=== PATIENT | female | born 1965 | race Caucasian/White ===

== ENCOUNTER 2022-05-20 09:05 | Outpatient (CLI) | payer OTHER, SELFPAY ==
--- OUTSIDE RECORDS SUMMARY | 2022-05-20 09:34 | XMS_ITS ---
:1965 Author Care Team Providers Name Role Phone VALENTÍN HINKLE Primary Care Provider [phone] DR. DEVON COSTA Referring Provider [phone] Allergies Code Code System Name Reaction Severity Status Onset Sulfa (Sulfonamide Antibiotics) ? ? Active ? Medications Name Status Start Date Stop Date ? ? amoxicillin 875 mg-potassium clavulanate 125 mg tablet Completed ? 05/11/2017 azithromycin 250 mg tablet Completed ? 05/11 citalopram 20 mg tablet Active ? Not avai lable cyclobenzaprine 10 mg tablet Active ? Not available One tablet at bedtime. cyclobenzaprine 5 mg tablet Completed ? 02/2017 doxycycline hyclate 100 mg capsule Active ? Not available estradiol 1 mg tablet Active ? Not availa ble fluconazole 150 mg tablet Completed ? 2016 fluticasone propionate 50 mcg/actuation nasal Completed ? 05/11/2017 spray,suspension metronidazole 0.75 % topical cream Completed ? 05/11/2017 metronidazole 0.75 % topical gel Active ? Not available nitrofurantoin monohydrate/macrocrystals 100 mg capsule Complete d ? 05/11/2017 phenazopyridine 200 mg tablet Completed ? prednisone 10 mg tablet Active ? Not avai lable Problems Name Status Onset Date Source ? 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 Myofascial Pain Active 05/11/2017 ? Arthralgia of Temporomandibular Joint Active 05/11/2017 ? Obstructive Sleep Apnea of Adult Active 06/08/2017 ? Osteoarthritis Active 06/08/2017 ? Procedures Date Name Performed by ? ? Hysterectomy Information not avai lablondon Notes: 200905/11/2017 XR, Orthopantogram [facility] [address] [place] [address] (Work Place) Results Lab Results Date Name Specimen Result Interpretation Description Value Range Status Address ? ? XR, Orthopantogram ? No observation ? ? ? [place]: [address], [place] ? Oral Appliance ? No observation ? ? ? [facility]: [address], [place] Past Encounters None recorded. Social History Tobacco Smoking Status Never Smoker Vaccine List Vaccine Type influenza, injectable, quadrivalent 04/03/2017 Plan of Care Reminders Provider Appointments None recorded. ? ? Lab None recorded. ? ? Referral None recorded. ? ? Procedures None recorded. ? ? Surgeries None recorded. ? ? Imaging None recorded. ? ? Vitals 10/31/2017 01:00PM FOLLOW UP 30 Height Weight BMI Blood Pressure 5 ft 11 in 195 lbs 27.2 kg/m2 126/70 mm[Hg] 06/22/2017 01:00PM FOLLOW UP 30 Height Weight BMI Blood Pressure 5 ft 11 in 195 lbs 27.2 kg/m2 128/75 mm[Hg] 06/08/2017 01:00PM SPLINT INSERT Height Weight BMI Blood Pressure 5 ft 11 in 195 lbs 27.2 kg/m2 104/70 mm[Hg] 05/11/2017 02:00PM NEW PATIENT 58 Height Weight BMI Blood Pressure 5 ft 11 in 195 lbs 27.2 kg/m2 125/77 mm[Hg]
[2022-05-20 14:36] LABS: Chloride* 105 mmol/L (96-114)
[2022-05-20 14:37] LABS: Albumin* 4.1 g/dL (3.3-5.0); Sodium* 141 mmol/L (135-149)
[2022-05-20 14:38] LABS: Potassium* 4.4 mmol/L (3.6-5.1)
[2022-05-20 14:39] LABS: Cholesterol* 278 mg/dL (90-199)
[2022-05-20 14:40] LABS: Alanine Aminotransferase* 21 U/L (4-35); Alkaline Phosphatase* 56 U/L (40-150); Aspartate Amino Transferase* 26 U/L (12-35); Bilirubin Total* 0.7 mg/dL (0.1-1.5); Blood Urea Nitrogen* 23 mg/dL (7-30); Calcium* 9.4 mg/dL (8.4-10.6); Carbon Dioxide* 33 mmol/L (20-32); Estimated Glomerular Filt Rate 65 ml/min; Glucose* 87 mg/dL (60-115); Total Protein* 6.5 g/dL (6.0-8.3); Triglycerides* 150 mg/dL (40-149)
[2022-05-20 14:41] LABS: HDL Cholesterol* 53 mg/dL (>=50); LDL Cholesterol Calculated 195 mg/dL (<100)
[2022-05-20 14:43] LABS: C Reactive Protein* < 0.5 mg/dL (0.5-1.0)
[2022-05-20 15:08] LABS: Vitamin D 25 Hydroxy* 35 ng/mL (30-80)
[2022-05-23 09:50] LABS: Progesterone, HPLC-MS/MS <0.10 ng/mL
[2022-05-25 17:17] LABS: Sex Hormone Binding Globulin 62 nmol/L (17-125); Testosterone Bioavailable 5.1 ng/dL (1.5-9.4); Testosterone, Free LC-MS/MS 1.9 pg/mL (0.6-3.8); Testosterone, LC-MS/MS 17 ng/dL (9-55)
== END 2022-05-20 09:06 | disposition home or self-care (01) ==
PROVIDERS: PCP Physician Assistant Medical; Visit Provider Physician Assistant Medical
DX: Z00.00 Encounter for general adult medical examination without abnormal findings (principal); N95.1 Menopausal and female climacteric states; E78.5 Hyperlipidemia, unspecified; Z13.29 Encounter for screening for other suspected endocrine disorder; Z13.9 Encounter for screening, unspecified
CPT/HCPCS: 80053; 80061; 82306; 82670; 84144; 84270; 84402; 84403; 84443; 86140

== ENCOUNTER 2022-06-03 13:43 | Outpatient (CLI) | payer OTHER, SELFPAY ==
--- NOTE | 2022-06-03 14:00 | CRLHL7_ITS ---
For Patients: As a result of the Century Cures Act, medical imaging exams and procedure reports are released immediately into your electronic medical record. You may view this report before your referring provider. If you have questions, please contact your health care provider. DXA BONE MINERAL DENSITY STUDY Reason for exam: Osteopenia. Current height (in): 70. Weight (lb): 200. Menopause age: 50. Ethnicity: White. 1. Have you had a previous hip or vertebral fracture? No. 2. Have you had any fractures during your adult life which did not result from significant trauma (e.g., auto accident)? Yes. 3. Did either of your parents have a hip fracture? Yes. 4. Do you smoke? No. 5. Have you ever taken Glucocorticoids? No. 6. Do you have rheumatoid arthritis? No. 7. Do you have secondary osteoporosis? No. 8. Do you drink 3 or more alcoholic drinks per day? No. 9. Are you being treated for osteoporosis? No. 10. Have you ever taken any of the following medications: Actonel, Evista, Fosamax, Miacalcin, Reclast, Boniva, Forteo, HRT (i.e., estrogen/hormone therapy), Protelos, Prolia, Vitamin D, Calcium, other ??? please specify. ANSWER: Yes, vitamin D and calcium. 11. Do you have any of the following medical conditions: Anorexia or bulimia, asthma or emphysema, end stage renal disease, hyperparathyroidism, any seizure disorders, cancer, inflammatory bowel diseases, hysterectomy, other ??? please specify. ANSWER: Yes, hysterectomy. 12. What was your maximum height (inches)? 70. 13. Do you perform weight bearing exercise regularly? No. 14. Do you regularly consume dairy products? Yes. 15. Do you drink caffeinated beverages? Yes. If female: 16. At what age did your period start? 11. 17. Are you premenopausal? No. 18. How many full-term pregnancies have you had? 3. 19. Have you ever missed your period for more than 6 months in a row (not including or menopause)? No. TECHNIQUE: Bone mineral density study was performed using the [employer]. FINDINGS: The results of the study expressed as bone mineral density (BMD) are as follows: Lumbar spine L1 to L4: BMD: 0.838 g/cm2. T-score: -1.9. Z-score: -0.6 Neck Left: BMD: 0.643 g/cm2. T-score: -1.9. Z-score: -0.6 Right: BMD: 0.643 g/cm2. T-score: -1.9. Z-score: -0.6 Total Left: BMD: 0.814 g/cm2. T-score: -1.0. Z-score: -0.2 Right: BMD: 0.789 g/cm2. T-score: -1.3. Z-score: -0.4 IMPRESSION: Osteopenia. *Comparison exams done prior to 12/2019 were performed on different unit, [employer]. COMPARISON: Compared with scan of 04/15/2016 the bone mineral density has decreased by 13.8 percent at the spine and decreased by 1.0 percent at the hip. FRAX 10-year Fracture Risk Major Osteoporotic Fracture: 27% Hip Fracture: 1.7% Reported Risk Factors: [place] () Neck BMD=0.643, BMI= 28.7, previous fracture, parental fracture Joseph Sanches M.D. Diagnostic Radiologist [email or web address] jennings/Dictated by: Joseph Sanches MD @ 06/04/2022 12:22:00 PM (Electronically Signed)
--- OUTSIDE RECORDS SUMMARY | 2022-06-03 14:12 | XMS_ITS ---
:1965 Author Care Team Providers Name Role Phone VALENTÍN HINKLE Primary Care Provider [phone] DR. DEVON COSTA Referring Provider [phone] Allergies Code Code System Name Reaction Severity [...] by ? ? Hysterectomy Information not avai quentin Notes: 200905/11/2017 XR, Orthopantogram [place] [facility] [address] [place] [address] (Work Place) Results Lab Results Date Name Specimen Result Interpretation Description Value Range Status Address ? ? XR, Orthopantogram ? No observation ? ? ? [place]: [address], [place] ? Oral Appliance ? No observation ? ? ? [place]: [address] [...]
== END 2022-06-03 13:44 | disposition home or self-care (01) ==
LOC: RAD 13:44
PROVIDERS: PCP Physician Assistant Medical; Visit Provider Physician Assistant Medical
DX: M85.80 Other specified disorders of bone density and structure, unspecified site (principal); M85.89 Other specified disorders of bone density and structure, multiple sites
CPT/HCPCS: 77080

== ENCOUNTER 2022-08-18 10:01 | Outpatient (CLI) | payer OTHER, SELFPAY ==
--- NOTE | 2022-08-18 10:15 | CRLHL7_ITS ---
For Patients: As a result of the Cures Act, medical imaging exams and procedure reports are released immediately into your electronic medical record. You may view this report before your referring provider. If you have questions, please contact your health care provider. BILATERAL SCREENING MAMMOGRAM WITH COMPUTER-AIDED DETECTION AND TOMOSYNTHESIS TECHNIQUE: CC and MLO views were obtained. These mammographic images have been obtained using full-field digital technique. These mammographic images were interpreted with the benefit of computer-aided detection. Breast tomosynthesis was used in this interpretation. COMPARISON FILM: 06/10/21, , 05/03/19. FINDINGS: There are scattered areas of fibroglandular density. IMPRESSION: There is no radiographic evidence for malignancy. ASSESSMENT: BI-RADS Category 1: Negative RECOMMENDATION: Routine screening mammogram in 1 year. A lay language report of this examination will be provided to the patient. JOSEPH KARIMI M.D. Diagnostic Radiologist [email or web address] Transcribed: 08/18/2022, 2:[address]/Dictated by: Joseph Karimi MD @ 08/18/2022 10:40:00 AM (Electronically Signed)
== END 2022-08-18 10:02 | disposition home or self-care (01) ==
LOC: MAMMO 10:01
PROVIDERS: PCP Physician Assistant Medical; Visit Provider Physician Assistant Medical
DX: Z12.31 Encounter for screening mammogram for malignant neoplasm of breast (principal)
CPT/HCPCS: 77063; 77067

== ENCOUNTER 2023-01-26 08:30 | Outpatient (CLI) | payer OTHER, SELFPAY | END 2023-01-26 08:31 | disposition home or self-care (01) | LOC: NFLDREF 01-27 10:52 | PROVIDERS: PCP Physician Assistant Medical; Referring Provider Physician Assistant Medical; Visit Provider Physician Assistant Medical | DX: E78.5 Hyperlipidemia, unspecified (principal) | CPT/HCPCS: 80061; 80076 ==

== ENCOUNTER 2023-03-14 10:51 | Emergency (ER) | payer OTHER, SELFPAY ==
[2023-03-14 10:55] VITALS: BP 148/78; PULSE 70; RESP 18; TEMP 35.9; O2SAT 99
--- NOTE | 2023-03-14 10:57 | CT_ITS ---
Patient: COLEMAN GERBER Facility:?[facility] Patient ID:?[id number] Site Patient ID:?[id number]. Site :?[id number] Study:?CT-Abdomen/Pelvis W/O-03/14/2023 11:36:49 AM Ordering Physician:Pedro Ponce Final Report: INDICATION: Left lower quadrant pain. COMPARISON: None. TECHNIQUE: CT of the abdomen and pelvis without IV or oral contrast. Axial, coronal, and sagittal reconstructions are included. FINDINGS: There is a 5 mm urinary tract calculus in the proximal left ureter. There is upstream hydroureteronephrosis, mild to moderate. There are no other left-sided urinary tract calculi. Very mild left perinephric stranding. There is a nonobstructing 8 mm globular urinary tract calculus in the right lower pole. No right ureteral calculus. No right-sided urinary tract dilatation. Normal noncontrast CT appearance of the right renal parenchyma. The urinary bladder is almost completely empty. The lung bases are clear. Cholelithiasis without cholecystitis. The liver is normal. The spleen is normal. The adrenal glands are normal. The pancreas is normal. No adenopathy or ascites. Atherosclerotic calcifications. Non aneurysmal abdominal aorta. Normal course and caliber of the bowel. No inflammatory straining. Few diverticula. The appendix is normal. Disc and facet degenerative change. No worrisome osseous findings. IMPRESSION: 1. There is a 5 mm at least partially obstructing left ureteral calculus. 2. Nonobstructing right lower pole renal calculus. 3. Cholelithiasis without cholecystitis. Please note that all CT scans at this facility use dose modulation, iterative reconstruction, and/or weight-based dosing when appropriate to reduce radiation dose to as low as reasonably achievable. Dictated by Wendy Hopkins MD @ 03/14/2023 12:47:05 PM Signed by:?Wendy Hopkins MD @03/14/2023 12:47:05 PM (Electronic Signature)
--- NOTE | 2023-03-14 11:00 | ED.GENADULT ---
HPI - General Adult General Date Seen: 03/14/23 Chief complaint: Abdominal Pain Stated complaint: Flank pain Time Seen by Provider: 03/14/23 10:56 Source: patient, RN notes reviewed and other Mode of arrival: EMS Limitations: no limitations History of Present Illness HPI narrative: Patient is a 57-year-old generally healthy woman who says she woke up in the middle night with some severe left lower quadrant pain that seems to radiate from the back. She does not have flank pain. No history of similar pain. Pain went away after about 10 minutes overnight but then returned when she was at work earlier today. She works at our [employer], she was given Toradol and Vistaril there and then came here by EMS. EMS also gave her some fentanyl 1 pain became more severe and route. She has had some nausea but no vomiting. Denies urinary symptoms. No vaginal bleeding, no diarrhea black or bloody stools. She is status post hysterectomy, still has her ovaries. Has some orthopedic medical history but denies other significant medical history. Postmenopausal. Related Data Home Medications Medication Instructions Recorded Confirmed cyclobenzaprine 10 mg tablet 10 mg PO .Bedtime as needed PRN 05/20/22 06/28/22 ergocalciferol (vitamin D2) 10 mcg 400 unit PO DAILY 05/20/22 06/28/22 (400 unit) tablet valacyclovir 1 gram tablet mg PO BID 05/20/22 06/28/22 Previous Rx's Medication Instructions Recorded citalopram 20 mg tablet 20 mg PO QDAY #90 tabs 06/30/22 rosuvastatin 5 mg tablet 5 mg PO QDAY #90 tabs 11/24/22 ondansetron 4 mg disintegrating 4 mg PO Q8H PRN nausea and 03/14/23 tablet vomiting #7 tabs oxycodone 5 mg tablet 5 mg PO Q6H PRN pain #10 tabs 03/14/23 tamsulosin 0.4 mg capsule 0.4 mg PO DAILY #14 caps 03/14/23 Allergies Allergy/AdvReac Type Severity Reaction Status Date / Time Sulfa (Sulfonamide Allergy Severe Hives Verified 06/28/22 12:04 Antibiotics) oxymetazoline Allergy Unknown Verified 06/28/22 12:04 Review of Systems Status of ROS: Reports: 10 or more systems reviewed and unremarkable except as noted in History and below PFSH [facility] Medical History Squamous cell carcinoma (04/10/10) Migraine headache (08/16/08) ?G43.909 - Migraine, unspecified, not intractable, without status migrainosus (ICD-10) History of colonic polyps ?Z86.010 - Personal history of colonic polyps (ICD-10) Disorder of paranasal sinus ?J34.9 - Unspecified disorder of nose and nasal sinuses (ICD-10) Bursitis of both hips ?M70.71 - Other bursitis of hip, right hip (ICD-10) ?M70.72 - Other bursitis of hip, left hip (ICD-10) Anemia ?D64.9 - Anemia, unspecified (ICD-10) Surgical History History of left cataract surgery ?Z98.42 - Cataract extraction status, left eye (ICD-10) History of nasal septoplasty ?Z98.890 - Other specified postprocedural states (ICD-10) History of hysterectomy (04/10/10) ?Z90.710 - Acquired absence of both cervix and uterus (ICD-10) Family History Sister Coronary artery disease Father Lung cancer Alcohol dependence Liver disease Mother COPD (chronic obstructive pulmonary disease) Osteoporosis Sister Diabetes Sister Osteoporosis Other Family history of thyroid problem Social History Narrative: . Three adult children. 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 Never smoker. Rare alcohol use. Denies recreational drug use. Smoking Status: Never smoker Non-prescribed substance use: denies use Little interest or pleasure in doing things: not at all Feeling down, depressed, or hopeless: not at all Exam Narrative: Exam Narrative: Vital signs as noted above. In general, an alert, well-appearing patient. Head: Normocephalic, atraumatic. Eyes: Pupils are equal reactive. Extraocular movements are full. Conjunctivae are normal. ENT: Mucous membranes are moist. Throat is normal. Neck: Supple without lymphadenopathy. Heart: Regular rate and rhythm. No murmur or rub. Lungs: Clear bilaterally. No increased work of breathing, crackles or wheezes. Abdomen: Soft nondistended. Mild left lower quadrant tenderness without rebound guarding or rigidity. Extremities: Well perfused. No edema. No calf tenderness. Pulses intact. Neurologic: Patient is alert and oriented to person and place. Speech is fluent. Face is symmetric. Moves all extremities equally. Affect: Normal. Skin: Warm and dry. Well perfused. Const: Vital Signs, click to edit/add: Vital Signs - 24 hr 03/14/23 10:55 03/14/23 12:22 Temperature 96.6 F L 97.6 F Pulse Rate [Right Pulse Oximeter] 70 74 Respiratory Rate 18 16 Blood Pressure [Ri ght Upper Arm] 148/78 H 140/86 H Pulse Oximetry 99 96 Oxygen Delivery Me thod Room Air Room Air Documenting provider has reviewed patient's vital signs: yes Course Course ED Course: IV is in place, currently does not need anything for pain. Have ordered normal saline, labs, CT without contrast as well as UA. Differential diagnosis includes kidney stone, ovarian pathology, diverticulitis, among others. Patient had an additional 4 mg of morphine prior to CT and is feeling more comfortable. CT by my review showed as 6 mm stone at the proximal left ureter with associated hydronephrosis. There is also a stone in the right kidney. Labs are notable for hematuria with 25-50 red cells but notably absent white cells. White blood cell count was normal at 7.7. Creatinine was normal at 1. CRP was less than 0.5. Final radiology readIMPRESSION: 1. There is a 5 mm at least partially obstructing left ureteral calculus. 2. Nonobstructing right lower pole renal calculus. 3. Cholelithiasis without cholecystitis. Discharge home, return for uncontrolled pain, fever, chills, vomiting or other worsening. Urology follow-up recommended as I suspect this will require instrumentation to pass, prescribed oxycodone, Zofran, Flomax. Push fluids, strain urine. Vital Signs Vital signs: Initial Vital Signs Temperature 96.6 F L 03/14/23 10:55 Temperature Source Temporal Artery Scan 03/14/23 10:55 Pulse Rate 70 03/14/23 10:55 Respiratory Rate 18 03/14/23 10:55 Blood Pressure 148/78 H 03/14/23 10:55 Blood Pressure Mean 101 03/14/23 10:55 Blood Pressure Position Sitting 03/14/23 10:55 Pulse Oximetry 99 03/14/23 10:55 Oxygen Delivery Method Room Air 03/14/23 10:55 Vital Signs Temperature 96.6 F L 03/14/23 10:55 Pulse Rate 70 03/14/23 10:55 Respiratory Rate 18 03/14/23 10:55 Blood Pressure 148/78 H 03/14/23 10:55 Pulse Oximetry 99 03/14/23 10:55 Oxygen Delivery Method Room Air 03/14/23 10:55 Temperature 97.6 F 03/14/23 12:22 Pulse Rate 74 03/14/23 12:22 Respiratory Rate 16 03/14/23 12:22 Blood Pressure 140/86 H 03/14/23 12:22 Pulse Oximetry 96 03/14/23 12:22 Oxygen Delivery Method Room Air 03/14/23 12:22 Medical Decision Making Lab Data Labs: Lab Results 03/14/23 03/14/23 Range/Units 11:05 11:21 WBC 7.71 (4.50-11.00) K/uL RBC 4.39 (4.00-5.20) m/uL Hgb 13.3 (12.0-16.0) gm/dL Hct 39.9 (33.0-51.0) % MCV 91 (80-100) fL MCH 30 (26-34) pg MCHC 33 (32-36) gm/dL RDW Coeff of Kylah 13.0 (11.5-15.5) % Plt Count 206 (140-440) K/uL Neut % (Auto) 65.6 (42.0-72.0) % Lymph % (Auto) 24.3 (20-44) % [place] % (Auto) 6.2 (0.0-11.0) % Eos % (Auto) 3.4 (0.0-7.0) % Baso % (Auto) 0.4 (0.0-3.0) % Neut # (Auto) 5.06 (1.7-7.0) K/uL Lymph # (Auto) 1.87 (0.90-2.90) K/uL [place] # (Auto) 0.50 (0.00-0.90) K/UL Eos # (Auto) 0.26 (0.00-0.50) K/uL Baso # (Auto) 0.03 (0.00-0.30) K/uL Abs Immat Gran (auto) 0.01 (0.00-0.30) K/uL Imm/Tot Granulo (auto) 0.1 % Sodium 140 (135-149) mmol/L Potassium 3.8 (3.6-5.1) mmol/L Chloride 105 (96-114) mmol/L Carbon Dioxide 29 (20-32) mmol/L Anion Gap 6 L (7-15) mEq/L BUN 16 (7-30) mg/dL Creatinine 1.0 (0.5-1.5) mg/dL Estimated GFR 65 ml/min Glucose 115 (60-115) mg/dL Calcium 9.6 (8.4-10.6) mg/dL C-Reactive Protein < 0.5 L (0.5-1.0) mg/dL Urine Color Brown A (Yellow) Urine Appearance Slightly Cloudy A (Clear) Urine pH 6.5 (5.0-8.5) Ur Specific [place] >= 1.030 (1.000-1.030) Urine Protein 3+ A (Negative) Urine Glucose (UA) Negative (Negative) Urine Ketones Trace A (Negative) Urine Blood 3+ A (Negative) Urine Nitrite Negative (Negative) Urine Bilirubin 1+ A (Negative) Urine Urobilinogen 0.2 (0.2-1.0) Ur Leukocyte Esterase Negative (Negative) Urine RBC 50-100 A (0-2) Urine WBC 0-2 (0-5) Ur Squamous Epith Cells Moderate A (None-Few) Urine Bacteria None (None) Discharge Plan Discharge Clinical Impression: Kidney stone on left side Patient Disposition: Home, Self-Care Instructions: Kidney Stones (ED) Additional Instructions: Medications as prescribed. Urology follow-up as soon as able, call [phone] to schedule with [facility]. Push fluids, strain urine. If at any time you have severe uncontrolled pain, new symptoms such as fever chills, vomiting, or other inability to manage symptoms at home, return to the emergency department. Prescriptions: New tamsulosin 0.4 mg capsule 0.4 mg PO DAILY Qty: 14 2RF oxycodone 5 mg tablet 5 mg PO Q6H PRN (Reason: pain) Qty: 10 0RF ondansetron 4 mg tablet,disintegrating 4 mg PO Q8H PRN (Reason: nausea and vomiting) Qty: 7 0RF No Action valacyclovir 1 gram tablet PO BID Rx Instructions: Take 2 tablets twice per day x 1 day for intial onset of cold sores( total of a 4 gram tx in 24 hours) ergocalciferol (vitamin D2) 10 mcg (400 unit) tablet 400 unit PO DAILY cyclobenzaprine 10 mg tablet 10 mg PO .Bedtime as needed PRN citalopram 20 mg tablet 20 mg PO QDAY Qty: 90 3RF rosuvastatin 5 mg tablet 5 mg PO QDAY Qty: 90 3RF Rx Instructions: Once daily for cholesterol Follow Up/Referrals: Linda Cowan PA-C [Primary Care Provider] - Stand Alone Forms: [facility] Info Instructions
[2023-03-14 11:12] LABS: Appearance Urine Slightly Cloudy (Clear); Bilirubin Urine 1+ (Negative); Blood Urine 3+ (Negative); Color Urine Brown (Yellow); Glucose Urine Negative (Negative); Ketones Urine Trace (Negative); Leukocyte Esterase Urine Negative (Negative); Nitrite Urine Negative (Negative); Protein Urine 3+ (Negative); Specific Gravity Urine >= 1.030 (1.000-1.030); Urobilinogen Urine 0.2 (0.2-1.0); pH Urine 6.5 (5.0-8.5)
[2023-03-14] MEDS: 0.9 % SODIUM CHLORIDE 1000 ml 1,000 ML IV (11:16)
[2023-03-14] MEDS: MORPHINE 4 MG/ML INJ IVP (11:16)
[2023-03-14 11:23] LABS: RBC Urine 50-100 (0-2); Squamous Epithelial Cell Urine Moderate (None-Few); WBC Urine 0-2 (0-5)
[2023-03-14 11:35] LABS: Basophils Absolute Auto 0.03 K/uL (0.00-0.30); Basophils Percent Auto 0.4 % (0.0-3.0); Eosinophils Absolute Auto 0.26 K/uL (0.00-0.50); Eosinophils Percent Auto 3.4 % (0.0-7.0); Hematocrit 39.9 % (33.0-51.0); Hemoglobin* 13.3 gm/dL (12.0-16.0); Immature Granulocytes Abs Auto 0.01 K/uL (0.00-0.30); Immature Granulocytes Pct Auto 0.1 %; Lymphocytes Absolute Auto 1.87 K/uL (0.90-2.90); Lymphocytes Percent Auto 24.3 % (20-44); Mean Corpuscular HGB Conc 33 gm/dL (32-36); Mean Corpuscular Hemoglobin 30 pg (26-34); Mean Corpuscular Volume 91 fL (80-100); Monocytes Percent Auto 6.2 % (0.0-11.0); Neutrophils Absolute Auto 5.06 K/uL (1.7-7.0); Neutrophils Percent Auto 65.6 % (42.0-72.0); Platelet Count* 206 K/uL (140-440); Red Blood Count 4.39 m/uL (4.00-5.20); White Blood Count* 7.71 K/uL (4.50-11.00)
[2023-03-14 11:40] LABS: Slide Review Reflex No
[2023-03-14 11:42] LABS: Chloride* 105 mmol/L (96-114); Potassium* 3.8 mmol/L (3.6-5.1); Sodium* 140 mmol/L (135-149)
[2023-03-14 11:45] LABS: Anion Gap 6 mEq/L (7-15); Blood Urea Nitrogen* 16 mg/dL (7-30); Carbon Dioxide* 29 mmol/L (20-32); Estimated Glomerular Filt Rate 65 ml/min
[2023-03-14 11:46] LABS: Calcium* 9.6 mg/dL (8.4-10.6); Glucose* 115 mg/dL (60-115)
[2023-03-14 12:05] LABS: C Reactive Protein* < 0.5 mg/dL (0.5-1.0)
[2023-03-14] MEDS: OXYCODONE 5 MG TABLET PO (12:06)
[2023-03-14 12:22] VITALS: BP 140/86; PULSE 74; RESP 16; TEMP 36.4; O2SAT 96
== END 2023-03-14 13:48 | disposition home or self-care (01) ==
PROVIDERS: Emergency Provider Emergency Medicine; PCP Physician Assistant Medical
DX: R10.32 Left lower quadrant pain (principal); Z87.442 Personal history of urinary calculi
CPT/HCPCS: 36415; 74176; 80048; 81001; 85025; 86140; 96374; 99284; A9270; J2270; J7030

== ENCOUNTER 2023-03-23 00:08 | Emergency (ER) | payer OTHER, SELFPAY ==
[2023-03-23 00:33] VITALS: BP 149/81; PULSE 88; RESP 18; TEMP 36.7; O2SAT 99; BMI 27.2
[2023-03-23 00:36] LABS: Appearance Urine Cloudy (Clear); Bilirubin Urine 1+ (Negative); Blood Urine 3+ (Negative); Color Urine Red (Yellow); Glucose Urine Negative (Negative); Ketones Urine Negative (Negative); Leukocyte Esterase Urine 1+ (Negative); Nitrite Urine Negative (Negative); Protein Urine 3+ (Negative); Specific Gravity Urine 1.025 (1.000-1.030); Urobilinogen Urine 0.2 (0.2-1.0); pH Urine 6.5 (5.0-8.5)
--- NOTE | 2023-03-23 00:49 | ED_ITS ---
HPI - General Adult General Time Seen by Provider: 00:49 Date Seen: 03/23/23 Chief complaint: Flank Pain Stated complaint: Severe Flank Pain-Left side Time Seen by Provider: 03/23/23 00:49 Source: patient, RN notes reviewed and old records reviewed Mode of arrival: ambulatory Limitations: no limitations History of Present Illness HPI narrative: Dot is a very pleasant 57-year-old female with history of hyperlipidemia and recent lithotripsy on TuesdayMarch 18 along with stent placement on the left who comes to the emergency room with increasing left-sided pain. Patient notes that she has had blood in her urine since the procedure and she has had some discomfort but usually controlled with oxycodone and Tylenol. She noted discomfort coming on earlier this evening at approximately 2200 hours and took her oxycodone and Tylenol. Instead of improving she actually has worsening pain. Pain is in her left flank and does radiate into her left lower abdominal quadrant. She has no pain with urination. She notes mild nausea but has not had any vomiting. She denies a fever. Movement does not improve her discomfort. Related Data Home Medications Medication Instructions Recorded Confirmed cyclobenzaprine 10 mg tablet 10 mg PO .Bedtime as needed PRN 05/20/22 03/23/23 ergocalciferol (vitamin D2) 10 mcg 400 unit PO DAILY 05/20/22 03/23/23 (400 unit) tablet ciprofloxacin HCl 500 mg tablet 500 mg PO BID 03/23/23 03/23/23 Previous Rx's Medication Instructions Recorded citalopram 20 mg tablet 20 mg PO QDAY #90 tabs 06/30/22 rosuvastatin 5 mg tablet 5 mg PO QDAY #90 tabs 11/24/22 ondansetron 4 mg disintegrating 4 mg PO Q8H PRN nausea and 03/14/23 tablet vomiting #7 tabs tamsulosin 0.4 mg capsule 0.4 mg PO DAILY #14 caps 03/14/23 oxycodone 5 mg tablet 5 mg PO Q6H PRN pain #15 tabs 03/16/23 Allergies Allergy/AdvReac Type Severity Reaction Status Date / Time Sulfa (Sulfonamide Allergy Severe Hives Verified 03/23/23 00:37 Antibiotics) oxymetazoline Allergy Mild Nose Verified 03/23/23 00:37 Closes Up Review of Systems Status of ROS: Reports: 6 or more systems reviewed and unremarkable except as noted in History and below Const: Denies: fever or chills ENMT: Denies: difficulty swallowing Cardio: Denies: chest pain, swelling of feet/ankles or shortness of breath with exertion Resp: Denies: shortness of breath GI: Reports: nausea; Denies: abdominal pain, vomiting or difficulty swallowing : Reports: blood in urine; Denies: painful urination Musculo: Reports: back pain Psych: Reports: anxiety (History of) [facility] Medical History Squamous cell carcinoma (04/10/10) Migraine headache (08/16/08) ?G43.909 - Migraine, unspecified, not intractable, without status migrainosus (ICD-10) History of colonic polyps ?Z86.010 - Personal history of colonic polyps (ICD-10) Disorder of paranasal sinus ?J34.9 - Unspecified disorder of nose and nasal sinuses (ICD-10) Bursitis of both hips ?M70.71 - Other bursitis of hip, right hip (ICD-10) ?M70.72 - Other bursitis of hip, left hip (ICD-10) Anemia ?D64.9 - Anemia, unspecified (ICD-10) Surgical History History of bunionectomy ?Z98.890 - Other specified postprocedural states (ICD-10) History of left cataract surgery ?Z98.42 - Cataract extraction status, left eye (ICD-10) History of nasal septoplasty ?Z98.890 - Other specified postprocedural states (ICD-10) History of hysterectomy (04/10/10) ?Z90.710 - Acquired absence of both cervix and uterus (ICD-10) Family History Sister Coronary artery disease Father Lung cancer Alcohol dependence Liver disease Mother COPD (chronic obstructive pulmonary disease) Osteoporosis Sister Diabetes Sister Osteoporosis Other Family history of thyroid problem Social History Narrative: . Three adult children. 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 Never smoker. Rare alcohol use. Denies recreational drug use. Smoking Status: Never smoker Second hand tobacco smoke exposure: No How often do you have a drink containing alcohol: never How often do you have six or more drinks on one occasion: Never AUDIT-C Alcohol total score: 0 Non-prescribed substance use: denies use Little interest or pleasure in doing things: not at all Feeling down, depressed, or hopeless: not at all Exam Narrative: Exam Narrative: Patient is alert and oriented. Appears fatigued but nontoxic in appearance. Mentating normally speech is appropriate. Heart with regular rate and rhythm. Lungs are clear bilaterally. Abdomen soft and nontender. No CVA tenderness with percussion. Moving all extremities. Const: Vital Signs, click to edit/add: Vital Signs - 24 hr 03/23/23 00:33 Temperature 98.0 F Pulse Rate [Right Pulse Oximeter] 88 Respiratory Rate 18 Blood Pressure [Ri ght Upper Arm] 149/81 H Pulse Oximetry 99 Oxygen Delivery Me thod Room Air Documenting provider has reviewed patient's vital signs: yes Course Course ED Course: At this time will place IV, give Dilaudid 0.5 mg IV and Zofran 4 mg IV as well as 1 L of normal saline. Hopefully we can get Dot's pain under control. Differential diagnosis does include ureteral blockage from stone fragment, blood clot, stent migration, UTI. We would also need to consider possibility of intra-abdominal process such as a constipation. Will check CBC, comprehensive, CRP, urinalysis. Reevaluation(s) Reevaluation #1: Patient feels that pain is better controlled. Patient is in agreement to proceed with CT. Vital Signs Vital signs: Initial Vital Signs Temperature 98.0 F 03/23/23 00:33 Temperature Source Temporal Artery Scan 03/23/23 00:33 Pulse Rate 88 03/23/23 00:33 Respiratory Rate 18 03/23/23 00:33 Blood Pressure 149/81 H 03/23/23 00:33 Blood Pressure Mean 103 03/23/23 00:33 Blood Pressure Position Sitting 03/23/23 00:33 Pulse Oximetry 99 03/23/23 00:33 Oxygen Delivery Method Room Air 03/23/23 00:33 Vital Signs Temperature 98.0 F 03/23/23 00:33 Pulse Rate 88 03/23/23 00:33 Respiratory Rate 18 03/23/23 00:33 Blood Pressure 149/81 H 03/23/23 00:33 Pulse Oximetry 99 03/23/23 00:33 Oxygen Delivery Method Room Air 03/23/23 00:33 Temperature 98.0 F 03/23/23 00:33 Pulse Rate 88 03/23/23 00:33 Respiratory Rate 18 03/23/23 00:33 Blood Pressure 149/81 H 03/23/23 00:33 Pulse Oximetry 99 03/23/23 00:33 Oxygen Delivery Method Room Air 03/23/23 00:33 Medical Decision Making MDM Narrative Medical decision making narrative: 1. Flank pain-patient feeling much improved after Dilaudid 0.5 mg and Zofran 4 mg. Patient also received 1 L of normal saline. CT is reassuring at this time. No evidence of retained stone. Patient agrees that she feels well enough to go home. Her labs are reassuring. She will be following up with her urologist later today. I have suggested in increase from 5 mg of oxycodone to 7.5 mg q.4 hours as needed. She may go up to a maximum of 10 mg if needed. 2. Status post lithotripsy with stent placement-CT reassuring. 2. Disposition-home at this time. present and is loving and supportive. Recommend return for fever, worsening symptoms and as needed. Medical Records Medical records reviewed: Yes I reviewed the patient's medical records Lab Data Lab results reviewed: Yes I reviewed the patient's lab results Labs: Lab Results 03/23/23 03/23/23 Range/Units 00:26 00:48 WBC 8.55 (4.50-11.00) K/uL RBC 4.27 (4.00-5.20) m/uL Hgb 12.9 (12.0-16.0) gm/dL Hct 38.4 (33.0-51.0) % MCV 90 (80-100) fL MCH 30 (26-34) pg MCHC 34 (32-36) gm/dL RDW Coeff of Kylah 12.7 (11.5-15.5) % Plt Count 247 (140-440) K/uL Neut % (Auto) 51.4 (42.0-72.0) % Lymph % (Auto) 35.3 (20-44) % [place] % (Auto) 7.3 (0.0-11.0) % Eos % (Auto) 5.5 (0.0-7.0) % Baso % (Auto) 0.4 (0.0-3.0) % Neut # (Auto) 4.40 (1.7-7.0) K/uL Lymph # (Auto) 3.02 H (0.90-2.90) K/uL [place] # (Auto) 0.60 (0.00-0.90) K/UL Eos # (Auto) 0.47 (0.00-0.50) K/uL Baso # (Auto) 0.03 (0.00-0.30) K/uL Abs Immat Gran (auto) 0.01 (0.00-0.30) K/uL Imm/Tot Granulo (auto) 0.1 % Sodium 140 (135-149) mmol/L Potassium 3.6 (3.6-5.1) mmol/L Chloride 103 (96-114) mmol/L Carbon Dioxide 29 (20-32) mmol/L Anion Gap 8 (7-15) mEq/L BUN 15 (7-30) mg/dL Creatinine 1.0 (0.5-1.5) mg/dL Estimated Creat Clear 67.70 Estimated GFR 65 ml/min Glucose 106 (60-115) mg/dL Calcium 9.8 (8.4-10.6) mg/dL Urine Color Red A (Yellow) Urine Appearance Cloudy A (Clear) Urine pH 6.5 (5.0-8.5) Ur Specific [place] 1.025 (1.000-1.030) Urine Protein 3+ A (Negative) Urine Glucose (UA) Negative (Negative) Urine Ketones Negative (Negative) Urine Blood 3+ A (Negative) Urine Nitrite Negative (Negative) Urine Bilirubin 1+ A (Negative) Urine Urobilinogen 0.2 (0.2-1.0) Ur Leukocyte Esterase 1+ A (Negative) Urine RBC >100 A (0-2) Urine WBC 2-5 (0-5) Ur Squamous Epith Cells Few (None-Few) Urine Bacteria Few A (None) Imaging Data CT scan - abdomen: Attestation: I have reviewed the pertinent imaging results. Radiologist's impression: Lower chest: Unremarkable. Liver: Unremarkable. Spleen: Unremarkable. Pancreas: Unremarkable. Gallbladder: A tiny calcified gallstone is seen near the colon bladder neck. Kidney: There is a stone in the lower pole of the right kidney that measures 8 mm. The stone in the left ureteropelvic junction seen on prior examination is no longer present. Interval placement of a left double-J ureteral stent is present with the proximal tip formed near the ureteropelvic junction. Adrenal: Unremarkable. Bowel: See above. The appendix is normal in appearance and size. Vascular: Unremarkable. Lymph: Unremarkable. Peritoneum: Unremarkable. No pneumoperitoneum is seen. No significant ascites is noted. Pelvis: The patient is status post hysterectomy. Soft tissue: Unremarkable. Bone: Unremarkable for age. IMPRESSION: 1. The stone in the left ureteropelvic junction seen on prior examination is no longer present. Interval placement of a left double-J ureteral stent is present with the proximal tip formed near the ureteropelvic junction. Discharge Plan Discharge Clinical Impression: Flank pain, acute, Status post laser lithotripsy of ureteral calculus Patient Disposition: Home, Self-Care Condition: Improved Additional Instructions: Consider increasing oxycodone dose from 5 mg to 7.5. If needed you may go to a maximum of 10 mg per dose. Stay well hydrated. Hand carry the CT disc and results with you to your appointment today. Seek medical attention for fever, vomiting, worsening symptoms. Prescriptions: No Action ergocalciferol (vitamin D2) 10 mcg (400 unit) tablet 400 unit PO DAILY cyclobenzaprine 10 mg tablet 10 mg PO .Bedtime as needed PRN oxycodone 5 mg tablet 5 mg PO Q6H PRN (Reason: pain) Qty: 15 0RF tamsulosin 0.4 mg capsule 0.4 mg PO DAILY Qty: 14 2RF ondansetron 4 mg tablet,disintegrating 4 mg PO Q8H PRN (Reason: nausea and vomiting) Qty: 7 0RF ciprofloxacin HCl 500 mg tablet 500 mg PO BID citalopram 20 mg tablet 20 mg PO QDAY Qty: 90 3RF rosuvastatin 5 mg tablet 5 mg PO QDAY Qty: 90 3RF Rx Instructions: Once daily for cholesterol Follow Up/Referrals: Linda Cowan PA-C [Primary Care Provider] - Stand Alone Forms: Direct Hit Info Instructions
[2023-03-23] MEDS: ONDANSETRON 2 MG/ML inj 4 MG IVP (01:00)
[2023-03-23] MEDS: 0.9 % SODIUM CHLORIDE 1000 ml 1,000 ML IV (01:00)
[2023-03-23] MEDS: HYDROmorphone 0.5 mg/0.5 ml inj IVP (01:01)
[2023-03-23 01:05] LABS: Basophils Absolute Auto 0.03 K/uL (0.00-0.30); Basophils Percent Auto 0.4 % (0.0-3.0); Eosinophils Absolute Auto 0.47 K/uL (0.00-0.50); Eosinophils Percent Auto 5.5 % (0.0-7.0); Hematocrit 38.4 % (33.0-51.0); Hemoglobin* 12.9 gm/dL (12.0-16.0); Immature Granulocytes Abs Auto 0.01 K/uL (0.00-0.30); Immature Granulocytes Pct Auto 0.1 %; Lymphocytes Absolute Auto 3.02 K/uL (0.90-2.90); Lymphocytes Percent Auto 35.3 % (20-44); Mean Corpuscular HGB Conc 34 gm/dL (32-36); Mean Corpuscular Hemoglobin 30 pg (26-34); Mean Corpuscular Volume 90 fL (80-100); Monocytes Percent Auto 7.3 % (0.0-11.0); Neutrophils Percent Auto 51.4 % (42.0-72.0); Platelet Count* 247 K/uL (140-440); RDW Coefficient of Variation % 12.7 % (11.5-15.5); Red Blood Count 4.27 m/uL (4.00-5.20); White Blood Count* 8.55 K/uL (4.50-11.00)
[2023-03-23 01:08] LABS: Bacteria Urine Few; RBC Urine >100 (0-2); Squamous Epithelial Cell Urine Few (None-Few)
[2023-03-23 01:10] VITALS: O2SAT 99
[2023-03-23 01:10] LABS: Slide Review Reflex No
[2023-03-23 01:15] VITALS: BP 128/74; PULSE 74; RESP 18; TEMP 36.7; O2SAT 99
[2023-03-23 01:18] LABS: Chloride* 103 mmol/L (96-114); Sodium* 140 mmol/L (135-149)
[2023-03-23 01:19] LABS: Potassium* 3.6 mmol/L (3.6-5.1)
[2023-03-23 01:21] LABS: Anion Gap 8 mEq/L (7-15); Carbon Dioxide* 29 mmol/L (20-32); Estimated Glomerular Filt Rate 65 ml/min
[2023-03-23 01:22] LABS: Blood Urea Nitrogen* 15 mg/dL (7-30); Calcium* 9.8 mg/dL (8.4-10.6); Glucose* 106 mg/dL (60-115)
--- NOTE | 2023-03-23 02:02 | CRLHL7_ITS ---
For Patients: As a result of the Century Cures Act, medical imaging exams and procedure reports are released immediately into your electronic medical record. You may view this report before your referring provider. If you have questions, please contact your health care provider. INDICATION: Left flank pain and hematuria. Ureteral stent placed 7 days ago TECHNIQUE: CT Abdomen and pelvis urogram with and without i.v. contrast. Post-contrast images were obtained in the nephrographic and delayed phases. Coronal and sagittal reformats were obtained. CONTRAST: 100 mL Isovue 370 COMPARISON: 03/14/2023 FINDINGS: Lower chest: Unremarkable. Liver: Unremarkable. Spleen: Unremarkable. Pancreas: Unremarkable. Gallbladder: A tiny calcified gallstone is seen near the colon bladder neck. Kidney: There is a stone in the lower pole of the right kidney that measures 8 mm. The stone in the left ureteropelvic junction seen on prior examination is no longer present. Interval placement of a left double-J ureteral stent is present with the proximal tip formed near the ureteropelvic junction. Adrenal: Unremarkable. Bowel: See above. The appendix is normal in appearance and size. Vascular: Unremarkable. Lymph: Unremarkable. Peritoneum: Unremarkable. No pneumoperitoneum is seen. No significant ascites is noted. Pelvis: The patient is status post hysterectomy. Soft tissue: Unremarkable. Bone: Unremarkable for age. IMPRESSION: 1. The stone in the left ureteropelvic junction seen on prior examination is no longer present. Interval placement of a left double-J ureteral stent is present with the proximal tip formed near the ureteropelvic junction. Dictated by Julian Golden MD @ 03/23/2023 3:18:36 AM Please note that all CT scans at this facility use dose modulation, iterative reconstruction, and/or weight-based dosing when appropriate to reduce radiation dose to as low as reasonably achievable. Dictated by: Julian Golden MD @ 03/23/2023 03:18:44 (Electronically Signed)
[2023-03-23 02:45] VITALS: BP 141/74; PULSE 75; RESP 18; TEMP 36.8; O2SAT 99
[2023-03-23 03:41] VITALS: BP 135/71; PULSE 82; RESP 18; TEMP 36.8; O2SAT 99
[2023-03-23 03:58] VITALS: BP 135/71; PULSE 82; RESP 18; TEMP 36.8
== END 2023-03-23 03:59 | disposition home or self-care (01) ==
PROVIDERS: Emergency Provider Family Medicine; PCP Physician Assistant Medical
DX: R10.9 Unspecified abdominal pain (principal)
CPT/HCPCS: 36415; 74177; 80048; 81001; 85025; 87086; 94761; 96361; 96374; 96375; 99284; 99285; J1170; J2405; J7030; Q9967

== ENCOUNTER 2023-03-31 09:01 | Outpatient (CLI) | payer OTHER, SELFPAY | END 2023-03-31 09:02 | disposition home or self-care (01) | LOC: NFLDREF 04-01 09:41 | PROVIDERS: PCP Physician Assistant Medical; Referring Provider Physician Assistant Medical; Visit Provider Physician Assistant Medical | DX: N20.0 Calculus of kidney (principal) | CPT/HCPCS: 87086 ==

== ENCOUNTER 2023-05-17 18:39 | Emergency (ER) | payer OTHER, SELFPAY ==
[2023-05-17 18:42] VITALS: BP 118/73; PULSE 99; RESP 16; TEMP 36.7; O2SAT 98; BMI 26.5
--- NOTE | 2023-05-17 19:26 | PC.NURSE ---
patient able to urinate while waiting to be seen by MD, left w/o being seen by MD. refusal signed
--- NOTE | 2023-05-17 19:26 | W.ED.CHARTNO ---
ED Chart Note Chart Note Details Date: 05/17/23 Details: Patient left without being seen. She has never seen by provider
== END 2023-05-17 19:27 | disposition left against medical advice (07) ==
LOC: ED 19:25
PROVIDERS: Emergency Provider Student in an Organized Health Care Education/Training Program; PCP Physician Assistant Medical
DX: Z53.21 Procedure and treatment not carried out due to patient leaving prior to being seen by health care provider (principal)

== ENCOUNTER 2023-07-06 09:41 | Outpatient (CLI) | payer OTHER, SELFPAY ==
--- OUTSIDE RECORDS SUMMARY | 2023-07-13 12:46 | XMS_ITS | Continuity of Care Document ---
Author Name Unknown Address [address] [place] [address] Phone [phone] Organization [facility] Address [address] [place] [address] Care Team Providers Care Safety Representative Name Role Phone STERLING PEREZ Primary Care Provider Assessment Encounter Date Assessment Date Assessment LastModified by Organization Details LastModified Time 2023 2023 57 Y/O FEMALE HX OF BILATERAL STONES. S/P LEFT ESWL AND RECOVERED WELL. KUB LOOKS GOOD. ALSO THE PRESENCE OF A 8MM RT RENAL STONE. DISCUSED OPTIONS. ALL QUESTIONS ANSWERED. ORDERED, REVIEWED , INTERPRETED KUB DISCUSSED PROCEDURE IN DETAIL. PLAN SCHEDULE RT ESWL. ALL QUESTIONS ANSWERED. Not available 05/06/2023 08:56:06 Plan of Treatment Reminders Order Date Submit Date Provider Last Modified By Organization Details Last Modified Time Details Appointments None record ed. Lab None record ed. Referral None record ed. Procedures None record ed. Surgeries None record ed. Imaging None record ed. Medication Orders None record ed. Patient TargetsNo targets recorded. Patient InstructionsNo instructions recorded. Reason for Referral None Reported. Results Created Date Observation Date Name Description Value Unit Range Abnormal Flag LastModifiedBy Organization Detail LastModifiedTime 05/04/20 23 2023 XR, kidne y + urete r + bladd er EXAM: XR, KIDNEY + URETER + BLADDE R [facility]AT[facility]: [facility] DATE: 023 INDICA TION: Calcul us of kidney COMPAR ELSA: None. IMPRES ARPAN: 6 mm stone noted in the mid to inferi or pole of the right kidney . No defini te left renal stones are identi fied. Nonobs tructi ve bowel gas patter n. Mild stool noted throug hout the colon. This report was electr onical ly interp reted by: Alfonzo Bowen MD on 2022 at 14:[address] [facility] [address], [place], [address], 05/05/2023 22:12:50 06/17/20 23 06/17/2023 XR, kidne y + urete r + bladd er EXAM: XR, KIDNEY + URETER + BLADDE R [facility]ATI [facility]: [facility] DATE: 2022 INDICA TION: Calcul us of kidney . COMPAR ELSA: 2022. IMPRES ARPAN: No visibl e urolit hiasis . CT could provid e more sensit kelli assess ment. Previo usly descri bed right- sided intrar enal stone is diffic ult to visual ize. Nonobs tructi ve bowel. This report was electr onical ly interp reted by: Magdaleno Quintanilla MD on 2022 at 16:[address] [facility] [address], [place], [address], 06/17/2023 17:39:45 Result Notes Documentation Provider Name and Address Organization Details Recorded Time Xr, Kidney + Ureter + Bladder : EXAM: XR, KIDNEY + URETER + BLADDER LOCATION: [facility] DATE: 2023 INDICATION: Calculus of kidney COMPARISON: None. IMPRESSION: 6 mm stone noted in the mid to inferior pole of the right kidney. No definite left renal stones are identified. Nonobstructive bowel gas pattern. Mild stool noted throughout the colon. This report was electronically interpreted by: Alfonzo Bowen MD on 2023 at 14:39 Reji Ferrera MD [address] [place] [address],[address], [place], [address], [facility] 05/05/2023 22:12:50 Problems Name Status Onset Date Resolution Date Notes Provider Name and Address Organization Details Recorded Time Ureteric stone Active 3 Mehnaz Smith PA-C [address] [facility],[address] [place] [address], [phone], [facility] 03/16/2023 09:56:55 Kidney stone Active 3 Mehnaz Smith PA-C [address] [facility] [address], [place], [address], [facility] 03/16/2023 09:57:00 Problem Notes None recorded. Procedures Surgical History Date Name Laterality Status Provider Name and Address Organization Details Recorded Time 3 Cystoscopy with foreign body/stent removal completed Reji Ferrera MD [address] [place] [address],[address], [phone], [facility] 03/23/2023 14:17:04 2 Colonoscopy completed Reji Ferrera MD [address] [place] [address], [facility] 06/17/2023 12:05:01 Imaging Results None recorded. Procedure Notes None recorded. Medical Equipment None Reported. Allergies Allergen ID Allergen Name Allergen Category Reaction Reaction Severity Criticality Documentation Date Start Date Code Code System Note Provider Name and Address Organization Details Recorded Time 246829 Substance with sulfonami de structure and antibacte rial mechanism of action (substanc e) medicatio n hives Not available Not available 03/16/2023 47173 8003 SN[facility]ED [facility] 10:20:03 224405 Afrin medicatio n Not available Not available Not available 06/17/2023 19225 1 RxNorm Reji Ferrera MD [address] [place] [address],[address] [place] [address], [phone], [facility] 3 12:03:27 Medications Name Sig Start Date Stop Date Status Note LastModified by Organization Details LastModified Time cyclobenzap rine 10 mg tablet TAKE ONE TABLET BY MOUTH AT BEDTIME NEEDED active Not Available Not Available No t Available azithromyci n 250 mg tablet TAKE 2 TABLETS BY MOUTH ON DAY 1, THEN TAKE 1 TABLET ONCE DAILY ON DAYS 2 THROUGH 5 03/16 completed Not Available Not Available Not Available valacyclovi r 1 gram tablet take 1 tablet by mouth twice daily for 5 days as needed for cold sores* active Not Available Not Available No t Available ciprofloxac in 500 mg tablet 05/04 completed Not Available Not Available Not Available tramadol 50 mg tablet 06/17 completed Not Available Not Available Not Available ketorolac 10 mg tablet TAKE ONE TABLET BY MOUTH THREE TIMES DAILY FOR 5 DAYS 06/17 completed Not Available Not Available Not Available oxycodone-a cetaminophe n 5 mg-325 mg tablet take 1 tablet by mouth every 4-6 hours as needed for pain 06/17 completed Not Available Not Available Not Available citalopram 20 mg tablet TAKE ONE TABLET BY MOUTH DAILY* active Not Available Not Available No t Available tamsulosin 0.4 mg capsule Take 1 capsule by mouth every day.* 05/04 completed Not Available Not Available Not Available erythromyci n 5 mg/gram (0.5 %) eye ointment instill 0.5 inch into the eye(s) three times a day for 5 days 06/17 completed Not Available Not Available Not Available ondansetron 4 mg disintegrat ing tablet Place 1 tablet every 8 hours by transling ual route as needed.* 06/17 completed Not Available Not Available Not Available oxycodone 5 mg tablet TAKE ONE TABLET BY MOUTH EVERY SIX HOURS NEEDED FOR PAIN* 06/17 completed Not Available Not Available Not Available rosuvastati n 5 mg tablet TAKE ONE TABLET BY MOUTH DAILY for cholester ol* active Not Available Not Available No t Available Flowflex COVID-19 Antigen Home Test kit use as directed 03/16 completed Not Available Not Available Not Available Vitals Date Recorded Body height Body mass index (BMI) Body weight Provider Name and Address Organization Details Last Updated DateTime 2023 180.34 cm 27.1 kg/m2 11051.92 g Reji Ferrera MD [address] [facility] [address], [place], [address], [facility] 2023 15:48:57 Social History Question Answer Notes LastModified by Organizat ion Details LastModified Time Tobacco Smoking Status Former Smoker Evette meade [facility] 03/16/2023 10:20:59 What Is Your Level Of Alcohol Consumption? Occasional [email or web address] Information not available 03/16/2023 What Is Your Level Of Caffeine Consumption? Occasional Information not available 06/17/2023 When Did You Quit Smoking? 16+yearsgloria menjivar [email or web address] Information not available 03/16/2023 What Was The Date Of Your Most Recent Tobacco Screening? 06/17/2023 Information not available 06/17/2023 Have You Ever Been Counseled For Unhealthy Alcohol Use? No Information not available 06/17/2023 How Many Days In The Past Year Have You Consumed 4 Or More Drinks? -2 Information not available 06/17/2023 Sex: Female Functional Status None recorded. Mental Status None recorded. Family History Relationship Description Onset Age of this Age Resolved Age Notes Father No current problems or disability Mother No current problems or disability Medical History Condition Response Sexually Transmitted Infection N Diabetes N Other N Bleeding Disorder N High Blood Pressure N Kidney Stones Y High Cholesterol N GERD/Acid Reflux N Heart Disease N Cancer N Lung Disease N Depression N Gynecological HistoryNo gynecological history recorded. Obstetrics History GPAL:G 0 P 0 0 0 0 Immunizations Vaccine Type Date Status Provider Name and Address Organization Details Recorded Time influenza, injectable, quadrivalent 04/07/2021 completed Evette meade [facility] 03/16/2023 10:19:44 influenza, recombinant, quadrivalent,inject able, preservative free 04/06/2019 completed Evette meade [facility] 03/16/2023 10:19:44 zoster recombinant 03/26/2020 [facility] 03/16/2023 10:19:44 zoster recombinant 06/16/2020 completed Evette meade [facility] 03/16/2023 10:19:44 COVID-19, mRNA, LNP-S, PF, 30 mcg/0.3 mL dose 07/22/2020 completed Evette meade [facility] 03/16/2023 10:19:44 COVID-19, mRNA, LNP-S, PF, 30 mcg/0.3 mL dose 04/21/2021 completed Evette Salamanca null, [facility] 03/16/2023 10:19:44 COVID-19, mRNA, LNP-S, PF, 30 mcg/0.3 mL dose 07/01/2020 completed Evette Salamanca null, [facility] 03/16/2023 10:19:44 COVID-19, mRNA, LNP-S, PF, 30 mcg/0.3 mL dose, shawn-sucrose 11/11/2021 completed Evette Salamanca null, [facility] 03/16/2023 10:19:44 COVID-19, mRNA, LNP-S, bivalent, PF, 30 mcg/0.3 mL dose 03/31/2022 completed Evette Salamanca null, [facility] 03/16/2023 10:19:44 influenza, unspecified formulation 04/27/2018 completed Evette Salamanca null, [facility] 03/16/2023 10:19:44 Tdap 10/08/2014 completed Evette Salamanca null, [facility] 03/16/2023 10:19:44 Influenza, seasonal, injectable, preservative free 04/06/2010 completed Evette Salamanca null, [facility] 03/16/2023 10:19:44 Influenza, seasonal, injectable, preservative free 04/06/2011 completed Evette Salamanca null, [facility] 03/16/2023 10:19:44 Influenza, seasonal, injectable, preservative free 04/06/2012 completed Evette Salamanca null, [facility] 03/16/2023 10:19:44 Influenza, seasonal, injectable, preservative free 04/10/2020 completed Evette Salamanca null, [facility] 03/16/2023 10:19:44 Influenza, seasonal, injectable, preservative free 04/26/2013 completed Evette Salamanca null, [facility] 03/16/2023 10:19:44 influenza, whole 04/23/2014 completed Evette Lynn s null, [facility] 03/16/2023 10:19:44 Novel [id number], preservative-free 04/25/2009 completed Evette Salamanca null, [facility] 03/16/2023 10:19:44 Td (adult), 2 Lf tetanus toxoid, preservative free, adsorbed 02/05/2005 [facility] 03/16/2023 10:19:44 Hep B, adolescent or pediatric 06/09/2007 [facility]16[facility]23 10:19:44 influenza, injectable, quadrivalent, preservative free 03/31/2017 completed Evette meade [facility] 03/16/2023 10:19:44 influenza, injectable, quadrivalent, preservative free 03/31/2022 completed Evette meade [facility] 03/16/2023 10:19:44 influenza, injectable, quadrivalent, preservative free 04/08/2016 completed Evette meade [facility] 03/16/2023 10:19:44 influenza, injectable, quadrivalent, preservative free 04/10/2015 completed Evette meade [facility] 03/16/2023 10:19:45 influenza, injectable, quadrivalent, preservative free 04/25/2009 [facility]/16/2023 10:19:45 Past Encounters Encounter ID Performer Location Encounter Start Date Encounter Closed Date Diagnosis/Indication [id number] Reji Ferrera MD [facility] [address] [place] [address] 2023 15:23:51 05/16/2023 18:53:24 History of calculus of kidney Health Concerns Section Related Observation LastModified by Organization Detai ls LastModified Time None Recorded Concern Status LastModified by Organization Details LastModified Time None Recorded Payers Encounter Date Sequence Insurance Name Policy Number Policy Patel Covered Member ID Patel Member ID Guarantor Name 2023 1 [id number] Maryann Zaynab Tirado [id number] Maryann Tirado Notes Date Note Type Note Provider Name and Address Organization Details Recorded Time 2023 text/html HPI Notes: 57 y/o female, hx bilateral kidney stones. s/p left eswl. DOING WELL. KUB LEFT LOOKS GOOD. ALSO SHE HAS AN 8 MM RT RENAL STONE AND REQUESTS TREATMENT. Reji Ferrera MD [address] [facility],[address], [place], [address], [facility] 05/06/2023 08:56:26 OBGyn Episode No OBEpisode recorded.
--- OUTSIDE RECORDS SUMMARY | 2023-07-13 12:46 | XMS_ITS | Data Portability ---
Author Name Unknown Address [address] [place] [address] Phone [phone] Organization [facility], [facility] Address [address] [place] [address] Care Team Providers Care Floriculturist Name Role Phone STERLING PEREZ Primary Care Provider Assessment Encounter Date Assessment Date Assessment LastModified by Organization Details LastModified Time 03/16/2023 03/16/2023 57F with left ureteral stone and kidney stone. Discussed medical expulsive therapy versus surgical intervention including options of ESWL, URS/HLL/stent, and their respective risks/complicati ons including but not limited to post-procedure pain or stent pain, infection/UTI/se psis, hematuria, anesthesia reaction, injury to adjacent structures, and possible need for additional/stage d procedure. She would like to proceed with surgery prior to her trip to [facility] in 3 weeks. ?? 1. Left proximal ureteral stone (6 mm) - reviewed outside CT scan, labs, ED notes - discussed medical expulsive therapy versus surgical intervention: she prefers surgery given severity of her pain and upcoming international travel - continue tamsulosin - continue PRN pain meds-- recommended Tylenol with oxy PRN (she declined refill for oxy at this time) - continue to strain urine at home, bring stone for analysis if passed and notify office if passed - return precautions for ER discussed-- worsening pain, fever/chills, N/V, other concerns - schedule with [facility] MD for cysto, left URS/HLL/possible ureteral stent 2. Right lower pole stone - surveillance for now - KUB in 1 year [email or web address] Not available 03/16/2023 17:46:39 03/23/2023 03/23/2023 57 Y/O MALE, S/P LEFT URS, HLL, LEFT STENT. HERE FOR STENT REMOVAL. HAD C.T. DONE IN [place] WHICH SHOWED NON OBSTRUCTIVE RT LOWER POLE STONE. LEFT LOOKED GOOD. LEFT STENT REMOVED. PLAN RTC 1 MO PREVENTION DISCUSSED. Not available 03/23/2023 14:19:45 2023 2023 57 Y/O FEMALE HX OF BILATERAL STONES. S/P LEFT ESWL AND RECOVERED WELL. KUB LOOKS GOOD. ALSO THE PRESENCE OF A 8MM RT RENAL STONE. DISCUSED OPTIONS. ALL QUESTIONS ANSWERED. ORDERED, REVIEWED , INTERPRETED KUB DISCUSSED PROCEDURE IN DETAIL. PLAN SCHEDULE RT ESWL. ALL QUESTIONS ANSWERED. Not available 05/06/2023 08:56:06 06/17/2023 06/17/2023 58 Y/O FEMALE, HX RENAL STONES. S/P RT ESWL.. 8MM STONE WELL FRAGMENTED. KUB NEG. ORDERED, REVIEWED , INTERPRETED KUB PLAN PREVENTION-INCRE ASED FLUIDS, LOW SALT, ,LEMONADE. RTC 1 YR .KUB Not available 06/17/2023 12:14:20 Plan of Treatment Reminders Order Date Submit Date Provider Last Modified By Organization Details Last Modified Time Details Appointments None recorded. Lab urinalysis , dipstick 2022 023 [email or web address] [facility], [address], [place], [address], 10:21:48 Referral None recorded. Procedures None recorded. Surgeries None recorded. Imaging None recorded. Medication Orders None recorded. Patient TargetsNo targets recorded. Patient InstructionsNo instructions recorded. Reason for Referral None Reported. Results Created Date Observation Date Name Description Value Unit Range Abnormal Flag LastModifiedBy Organization Detail LastModifiedTime 03/16/2003/16/2023 urina lysis , dipst ick Color-Status Yellow Not Available [facility] [address], [place], [address], 03/16/2023 10:21:20 03/16/2003/16/2023 urina lysis , dipst ick Clarity-Stat us Clear Not Available [facility] [address], [place], [address], 03/16/2023 10:21:20 03/16/20 23 03/16/2023 urina lysis , dipst ick pH-Status 5.0 Not Available [facility] [address], [place], [address], 03/16/2023 10:21:20 03/16/20 23 03/16/2023 urina lysis , dipst ick Nitrates-Sta tus negati ve Not Available [facility] [address], [place], [address], 03/16/2023 10:21:20 03/16/20 23 03/16/2023 urina lysis , dipst ick Blood-Status Modera te Not Available [facility] [address], [place], [address], 03/16/2023 10:21:20 03/16/20 23 03/16/2023 urina lysis , dipst ick Leuko-Status Trace Not Available [facility] [address], [place], [address], 03/16/2023 10:21:20 05/04/20 23 2023 XR, kidne y + urete r + bladd er EXAM: XR, KIDNEY + URETER + BLADDE R LOCATI ON: [facility] [place] DATE: 023 INDICA TION: Calcul us of [...] Alfonzo Bowen MD on 2022 at 14:39 [place] [facility] [place] [address], [place], [address], 05/05/2023 22:12:50 06/17/20 23 06/17/2023 XR, kidne y + urete r + bladd er EXAM: XR, KIDNEY + URETER + BLADDE R LOCATI ON: [facility] [place] DATE: 2022 INDICA TION: Calcul us of [...] Magdaleno Quintanilla MD on 2022 at 16:[address] [facility] [place] [address], [place], [address], 06/17/2023 17:39:45 Result Notes Documentation Provider Name and Address Organization Details Recorded Time Xr, Kidney + Ureter + Bladder : EXAM: XR, KIDNEY + URETER + BLADDER [facility] DATE: 2023 INDICATION: Calculus of kidney COMPARISON: None. IMPRESSION: 6 mm stone noted in the mid to inferior pole of the right kidney. No definite left renal stones are identified. Nonobstructive bowel gas pattern. Mild stool noted throughout the colon. This report was electronically interpreted by: Alfonzo Bowen MD on 2023 at 14:39 Reji Ferrera MD [address] [place] [address],[address], [place], [address], [facility] 05/05/2023 22:12:50 Xr, Kidney + Ureter + Bladder : EXAM: XR, KIDNEY + URETER + BLADDER LOCATION: [facility] DATE: 06/17/2023 INDICATION: Calculus of kidney. COMPARISON: 2023. IMPRESSION: No visible urolithiasis. CT could provide more sensitive assessment. Previously described right-sided intrarenal stone is difficult to visualize. Nonobstructive bowel. This report was electronically interpreted by: Magdaleno Quintanilla MD on 06/17/2023 at 16:02 Reji Ferrera MD [address] [place] [address],[address], [place], [address], [facility] 06/17/2023 17:39:45 Problems Name Status Onset Date Resolution Date Notes Provider Name and Address Organization Details Recorded Time Ureteric stone Active 3 Mehnaz Smith PA-C [address] [place] [address],[address], [place], [address], [facility] 03/16/2023 09:56:55 Kidney stone Active 3 Mehnaz Smith PA-C [address] [place] [address],[address], [place], [address], [facility] 03/16/2023 09:57:00 Problem Notes None recorded. Procedures Surgical History Date Name Laterality Status Provider Name and Address Organization Details Recorded Time 3 Cystoscopy with foreign body/stent removal completed Reji Ferrera MD [address] [place] [address],[address], [place], [address], [facility] 03/23/2023 14:17:04 2 Colonoscopy completed Reji Ferrera MD [address] [place] [address],[address], [place], [address], [facility] 06/17/2023 12:05:01 Imaging Results Imaging Date Name Status LastModified by Organiz ation Details LastModified Time 2023 XR, kidney + ureter + bladder completed [id number] [facility] [place] [address], [place], [address], 05/05/2023 22:12:50 06/17/2023 XR, kidney + ureter + bladder completed [address] [facility] [place] [address], [place], [address], 06/17/2023 17:39:45 Procedure Notes None recorded. Medical Equipment None Reported. Allergies Allergen ID Allergen Name Allergen Category Reaction Reaction Severity Criticality Documentation Date Start Date Code Code System Note Provider Name and Address Organization Details Recorded Time 330862 Substance with sulfonami de structure and antibacte rial mechanism of action (substanc e) medicatio n hives Not available Not available 03/16/2023 78894 8003 SNOMED Evetteagusto Salamanca [facility] 3 10:20:03 984131 Afrin medicatio n Not available Not available Not available 06/17/2023 09268 1 RxNorm Reji Ferrera MD [address] [facility],[address], [address], [facility] 3 12:03:27 Medications Name Sig Start Date [...] and Address Organization Details Last Updated DateTime 03/16/2023 180.34 cm 27.2 kg/m2 98656.51 g Evette meade [facility] 03/16/2023 10:19:29 Date Recorded Body height Body mass index (BMI) Body weight Provider Name and Address Organization Details Last Updated DateTime 03/23/2023 180.34 cm 27.2 kg/m2 96984.51 g Reji Ferrera MD [address] [place] [address], [address] [place] [address] 03/23/2023 14:02:15 Date Recorded Body height Body mass index (BMI) Body weight Provider Name and Address Organization Details Last Updated DateTime 2023 180.34 cm 27.1 kg/m2 10576.92 tacos Ferrera MD [address] [place] [address] 2023 15:48:57 Date Recorded Body height Body mass index (BMI) Body weight Provider Name and Address Organization Details Last Updated DateTime 06/17/2023 180.34 cm 27.1 kg/m2 83741.92 tacos Ferrera MD [address] [place] [address],[address] 06/17/2023 12:03:13 Social History Question Answer Notes LastModified by Organizat ion Details LastModified Time Tobacco Smoking Status Former Smoker Evette meade [facility] 03/16/2023 10:20:59 What Is Your Level Of Alcohol Consumption? Occasional [email or web address] Information not available 03/16/2023 What Is Your Level Of Caffeine Consumption? Occasional Information not available 06/17/2023 When Did You Quit Smoking? 16+yearsgloria menjivar [email or web address] Information not available 03/16/2023 What Was The [...] problems or disability Medical History Condition Response Other N High Blood Pressure N Kidney Stones Y Depression N Sexually Transmitted Infection N Cancer N Bleeding Disorder N Lung Disease N GERD/Acid Reflux N High Cholesterol N Diabetes N Heart Disease N Gynecological HistoryNo gynecological history recorded. Obstetrics History GPAL:G 0 P 0 0 0 0 Immunizations Vaccine Type Date Status Provider Name and Address Organization Details Recorded Time influenza, injectable, quadrivalent 04/07/[address] [facility] 03/16/2023 10:19:44 influenza, recombinant, quadrivalent,inject able, preservative free 04/06/2019 completed Evette meade [facility] 03/16/2023 10:19:44 zoster recombinant 03/26/2020 completed Evette grovess halina [facility] 03/16/2023 10:19:44 zoster recombinant 06/16/2020 completed Evette meade [facility] 03/16/2023 10:19:44 COVID-19, mRNA, LNP-S, PF, 30 mcg/0.3 mL dose 07/22/[address] [facility] 03/16/2023 10:19:44 COVID-19, mRNA, LNP-S, PF, 30 mcg/0.3 mL dose 04/21/2021 erma meade [facility] 03/16/2023 10:19:44 COVID-19, mRNA, LNP-S, PF, 30 mcg/0.3 mL dose 07/01/2020 completed Evette Salamanca null, [facility] 03/16/2023 10:19:44 COVID-19, mRNA, LNP-S, PF, 30 mcg/0.3 mL dose, shawn-sucrose 11/11/2021 completed Evette Salamanca null, [facility] 03/16/2023 10:19:44 COVID-19, mRNA, LNP-S, bivalent, PF, 30 mcg/0.3 mL dose 03/31/2022 completed Evette Salamanca null, [facility] 03/16/2023 10:19:44 influenza, unspecified formulation 04/27/2018 completed Evette Salamanca null, [facility] 03/16/2023 10:19:44 Tdap 10/08/2014 [facility] 10:19:44 Influenza, seasonal, injectable, preservative free 04/06/2010 completed Evette Salamanca null, [facility] 03/16/2023 10:19:44 Influenza, seasonal, injectable, preservative free 04/06/2011 completed Evette Salamanca null, [facility] 03/16/2023 10:19:44 Influenza, seasonal, injectable, preservative free 04/06/2012 completed Evette Salamanca null, [facility] 03/16/2023 10:19:44 Influenza, seasonal, injectable, preservative free 04/10/2020 completed Evette Salamanca null, [facility] 03/16/2023 10:19:44 Influenza, seasonal, injectable, preservative free 04/26/2013 completed Evette Salamanca null, [facility] 03/16/2023 10:19:44 influenza, whole 04/23/2014 completed Evette [place] null, [facility] 03/16/2023 10:19:44 Novel [id number], preservative-free 04/25/2009 [facility]23 10:19:44 Td (adult), 2 Lf tetanus toxoid, preservative free, adsorbed 02/05/2005 completed Evette meade [facility] 03/16/2023 10:19:44 Hep B, adolescent or pediatric 06/09/2007 [facility]/16/2023 10:19:44 influenza, injectable, quadrivalent, preservative free 03/31/2017 completed Evette meade [facility] 03/16/2023 10:19:44 influenza, injectable, quadrivalent, preservative free 03/31/2022 completed Evetet meade [facility] 03/16/2023 10:19:44 influenza, injectable, quadrivalent, preservative free 04/08/2016 completed Evette meade [facility] 03/16/2023 10:19:44 influenza, injectable, quadrivalent, preservative free 04/10/2015 completed Evette meade [facility] 03/16/2023 10:19:45 influenza, injectable, quadrivalent, preservative free 04/25/2009 completed Evette meade [facility] 03/16/2023 10:19:45 Past Encounters Encounter ID Performer Location Encounter Start Date Encounter Closed Date Diagnosis/Indication [id number] JAYASHREE Hill [address] [place] [address] 03/16/2023 09:41:24 03/18/2023 16:06:46 Ureteric stone Kidney stone [id number] [place] [address] 03/23/2023 13:47:32 04/02/2023 15:24:36 Ureteric stone History of calculus of kidney [id number] [place] [address] 2023 15:23:51 05/16/2023 18:53:24 History of calculus of kidney [id number] [place] [address] 06/17/2023 11:53:23 06/17/2023 12:37:25 Kidney stone Health Concerns Section Related Observation LastModified by Organization Detai ls LastModified Time None Recorded Concern Status LastModified by Organization Details LastModified Time None Recorded Advance Directives Directive None Recorded Payers Encounter Date Sequence Insurance Name Policy Number Policy Patel Covered Member ID Patel Member ID Guarantor Name 06/17/2023 1 PREFERREDONE Maryann A Candida [id number] Maryann Candida 2023 1 PREFERREDONE Maryann A Candida [id number] Maryann Candida 03/23/2023 1 PREFERREDONE Maryann A Candida [id number] Maryann Candida 03/16/2023 1 PREFERREDONE Maryann A Candida [id number] Maryann Candida Notes Date Note Type Note Provider Name and Address Organization Details Recorded Time 03/16/2023 text/html HPI Notes: 57F with left ureteral stone and kidney stone. Seen at [place] ED on 03/14 for acute onset left flank pain. CT demonstrated a 6 mm proximal to mid left ureteral stone with a right lower pole stone as well. Discharged with flomax, oxycodone, and zofran. Here for follow up. Still with ongoing left flank pain; using ibuprofen and oxycodone currently. Has had some nausea, but no vomiting. Straining urine, but has not seen stone pass. Denies dysuria, gross hematuria, fever, or chills. No prior history of kidney stones. UTI x1 in remote past. Leaves for [place] in 3 weeks so hoping to have stone addressed prior. UA with moderate blood, trace leuks, o/w negative Labs: (reviewed) 03/14/23 UA 50-100 RBC, 0-2 WBC, neg nitrite, neg leuk est 03/14/23 Cr 1.0 Imaging: (reviewed) 03/14/23 CT A/P: 5 mm prox left ureteral stone with hydro; additional RLP stone PMH: migraines, SCC PSH: Mehnaz Smith PA-C [address] [place] [address],[address], [place], [address], [place] [facility] 03/16/2023 17:46:42 03/23/2023 text/html HPI Notes: 57F with left ureteral stone and kidney stone. Seen at [place] ED on 03/14 for acute onset left flank pain. CT demonstrated a 6 mm proximal to mid left ureteral stone with a right lower pole stone as well. Discharged with flomax, oxycodone, and zofran. Here for follow up. Still with ongoing left flank pain; using ibuprofen and oxycodone currently. Has had some nausea, but no vomiting. Straining urine, but has not seen stone pass. Denies dysuria, gross hematuria, fever, or chills. No prior history of kidney stones. UTI x1 in remote past. Leaves for [place] in 3 weeks so hoping to have stone addressed prior. UA with moderate blood, trace leuks, o/w negative Labs: (reviewed) 03/14/23 UA 50-100 RBC, 0-2 WBC, neg nitrite, neg leuk est 03/14/23 Cr 1.0 Imaging: (reviewed) 03/14/23 CT A/P: 5 mm prox left ureteral stone with hydro; additional RLP stone PMH: migraines, SCC PSH: 03/18/23 s/p Left Ureteroscopy , HLL, LEFT STENT. HAD PAIN YESTERDAY AND C.T. LOOKED GOOD ON THE LEFT 8MM RT LOWER POLE STONE. HERE FOR STENT REMOVAL. Reji Ferrera MD [address] [place] [address],[address], [place], [address], [facility] 03/25/2023 15:25:48 2023 text/html HPI Notes: 57 y/ o female, hx bilateral kidney stones. s/p left eswl. DOING WELL. KUB LEFT LOOKS GOOD. ALSO SHE HAS AN 8 MM RT RENAL STONE AND REQUESTS TREATMENT. Reji Ferrera MD [address] [place] [address],[address], [place], [address], [facility] 05/06/2023 08:56:26 06/17/2023 text/html HPI Notes: 58 y/ o female, hx bilateral kidney stones. s/p left eswl. DOING WELL. KUB LEFT LOOKS GOOD. ALSO SHE HAS AN 8 MM RT RENAL STONE AND REQUESTS TREATMENT. ESWL ON 05/16/23 KUB TODAY LOOKS GOOD. Reji Ferrera MD [address] [place] [address],[address], [place], [address], [facility] 06/17/2023 12:14:34 OBGyn Episode No OBEpisode recorded.
--- OUTSIDE RECORDS SUMMARY | 2023-07-13 12:46 | XMS_ITS | Continuity of Care Document ---
Author Name Unknown Address [address] [place] [address] Phone [phone] Organization [facility], [facility] Address [address] [place] [address] Care Team Providers Care Reticle Printer Name Role Phone STERLING PEREZ Primary Care Provider Assessment Encounter Date Assessment Date Assessment LastModified by Organization Details LastModified Time 06/17/2023 06/17/2023 58 Y/O FEMALE, HX RENAL STONES. S/P RT ESWL.. 8MM STONE WELL FRAGMENTED. KUB NEG. ORDERED, REVIEWED , INTERPRETED KUB PLAN PREVENTION-INC REASED FLUIDS, LOW SALT, ,LEMONADE. RTC 1 YR [...] Range Abnormal Flag LastModifiedBy Organization Detail LastModifiedTime 06/17/20 23 06/17/2023 XR, kidne y + urete r + bladd er EXAM: XR, KIDNEY + URETER + BLADDE R LOCATI ON: [facility] DATE: 2022 INDICA TION: [...] Magdaleno Quintanilla MD on 2022 at 16:02 [facility] [address], [place], [address], 06/17/2023 17:39:45 Result Notes Documentation Provider Name and Address Organization Details Recorded Time Xr, Kidney + Ureter + Bladder : EXAM: XR, KIDNEY + URETER + BLADDER [facility] DATE: 06/17/2023 INDICATION: Calculus of kidney. COMPARISON: 2023. IMPRESSION: No visible urolithiasis. CT could provide more sensitive assessment. Previously described right-sided intrarenal stone is difficult to visualize. Nonobstructive bowel. This report was electronically interpreted by: Magdaleno Quintanilla MD on 06/17/2023 at 16:02 Reji Ferrera MD [address] [place] [address],[address], [address], [facility] 06/17/2023 17:39:45 Problems Name Status Onset Date Resolution Date Notes Provider Name and Address Organization Details Recorded Time Ureteric stone Active 3 Mehnaz Smith PA-C [address] [place] [address],[address], [address], [facility] 03/16/2023 09:56:55 Kidney stone Active 3 Mehnaz Smith PA-C [address] [place] [address],[address], [address], [facility] 03/16/2023 09:57:00 Problem Notes None recorded. Procedures Surgical History Date Name Laterality Status Provider Name and Address Organization Details Recorded Time 3 Cystoscopy with foreign body/stent removal completed Reji Ferrera MD [address] [place] [address],[address], [address], [facility] 03/23/2023 14:17:04 2 Colonoscopy completed Reji Ferrera MD [address] [place] [address],[address], [address], [facility] 06/17/2023 12:05:01 Imaging Results None recorded. Procedure Notes None recorded. Medical Equipment None Reported. Allergies Allergen ID Allergen Name Allergen Category Reaction Reaction Severity Criticality Documentation Date Start Date Code Code System Note Provider Name and Address Organization Details Recorded Time 411047 Substance with sulfonami de structure and antibacte rial mechanism of action (substanc e) medicatio n hives Not available Not available 03/16/2023 24789 8003 SNOMED Evette Wildes [facility], [facility] 3 10:20:03 102181 Afrin medicatio n Not available Not available Not available 06/17/2023 13436 1 RxNorm Reji Ferrera MD [address] [facility],[address], [address], [facility] 3 12:03:27 Medications Name Sig Start Date [...] Updated DateTime 06/17/2023 180.34 cm 27.1 kg/m2 46960.92 g Reji Ferrera MD [address] [place] [address], [phone] [place] [address] Urology 06/17/2023 12:03:13 Social History Question Answer Notes LastModified by Organizat ion Details LastModified Time Tobacco Smoking Status [facility] 03/16/2023 10:20:59 What Is Your Level Of Alcohol Consumption? Occasional [email or web address] Information not available 03/16/2023 What Is Your Level Of Caffeine Consumption? Occasional Information not available 06/17/2023 When Did You Quit Smoking? 16+yearssinyaw menjivar [email or web address] Information not available 03/16/2023 What Was The [...] problems or disability Medical History Condition Response Diabetes N Sexually Transmitted Infection N Other N Bleeding Disorder N High Blood Pressure N Kidney Stones Y High Cholesterol N GERD/Acid Reflux N Heart Disease N Cancer N Lung Disease N Depression N Gynecological HistoryNo gynecological history recorded. Obstetrics History GPAL:G 0 P 0 0 0 0 Immunizations Vaccine Type Date Status Provider Name and Address Organization Details Recorded Time influenza, injectable, quadrivalent 04/07/2021 [facility]23 10:19:44 influenza, recombinant, quadrivalent,inject able, preservative free 04/06/2019 completed Evetteagusto Salamanca null, [facility] 03/16/2023 10:19:44 zoster recombinant 03/26/2020 completed Evette Voss oks null, [facility] 03/16/2023 10:19:44 zoster recombinant 06/16/2020 [facility] 03/16/2023 10:19:44 COVID-19, mRNA, LNP-S, PF, 30 mcg/0.3 mL dose 07/22/2020 completed [facility] 03/16/2023 10:19:44 COVID-19, mRNA, LNP-S, PF, 30 mcg/0.3 mL dose 04/21/2021 [facility]/16/[facility]23 10:19:44 COVID-19, mRNA, LNP-S, PF, 30 mcg/0.3 mL dose 07/01/2020 [facility] 03/16/2023 10:19:44 COVID-19, mRNA, LNP-S, PF, 30 mcg/0.3 mL dose, shawn-sucrose 11/11/2021 [facility]/16/2023 10:19:44 COVID-19, mRNA, LNP-S, bivalent, PF, 30 mcg/0.3 mL dose 03/31/2022 [facility]23 10:19:44 influenza, unspecified formulation 04/27/2018 [facility]/16/2023 10:19:44 Tdap 10/08/2014 completed Evette Salamanca null, [facility] 03/16/2023 10:19:44 Influenza, seasonal, injectable, preservative free 04/06/2010 completed Evette Salamanca null, [facility] 03/16/2023 10:19:44 Influenza, seasonal, injectable, preservative free 04/06/2011 completed Evette Salamanca null, [facility] 03/16/2023 10:19:44 Influenza, seasonal, injectable, preservative free 04/06/2012 completed Evette Salamanca null, [facility] 03/16/2023 10:19:44 Influenza, seasonal, injectable, preservative free 04/10/2020 completed Evette Salamanca null, [facility] 03/16/2023 10:19:44 Influenza, seasonal, injectable, preservative free 04/26/2013 completed Evette Salamanca null, [facility] 03/16/2023 10:19:44 influenza, whole 04/23/2014 completed Evette [place] null, [facility] 03/16/2023 10:19:44 Novel [id number], preservative-free 04/25/2009 [facility] 03/16/2023 10:19:44 Td (adult), 2 Lf tetanus toxoid, preservative free, adsorbed 02/05/2005 [facility] 03/16/2023 10:19:44 Hep B, adolescent or pediatric 06/09/2007 completed Evette Salamanca null, [facility] 03/16/2023 10:19:44 influenza, injectable, quadrivalent, preservative free 03/31/2017 completed Evette Salamanca null, [facility] 03/16/2023 10:19:44 influenza, injectable, quadrivalent, preservative free 03/31/2022 completed Evette Salamanca null, [facility] 03/16/2023 10:19:44 influenza, injectable, quadrivalent, preservative free 04/08/2016 completed Evetteagusto Wildes null, [facility] 03/16/2023 10:19:44 influenza, injectable, quadrivalent, preservative free 04/10/[address] [facility] 03/16/2023 10:19:45 influenza, injectable, quadrivalent, preservative free 04/25/[address] [facility] 03/16/2023 10:19:45 Past Encounters Encounter ID Performer Location Encounter Start Date Encounter Closed Date Diagnosis/Indication [id number] Reji Ferrera MD [facility] [address] [place] [address] 06/17/2023 11:53:23 06/17/2023 12:37:25 Kidney stone Health Concerns Section Related Observation LastModified by Organization Detai ls LastModified Time None Recorded Concern Status LastModified by Organization Details LastModified Time None Recorded Payers Encounter Date Sequence Insurance Name Policy Number Policy Patel Covered Member ID Patel Member ID Guarantor Name 06/17/2023 1 PREFERREDONE Maryann Tirado [id number] Maryann Candida Notes Date Note Type Note Provider Name and Address Organization Details Recorded Time 06/17/2023 text/html HPI Notes: 58 y/o female, hx bilateral kidney stones. s/p left eswl. DOING WELL. KUB LEFT LOOKS GOOD. ALSO SHE HAS AN 8 MM RT RENAL STONE AND REQUESTS TREATMENT. ESWL ON 05/16/23 KUB TODAY LOOKS GOOD. Reji Ferrera MD [address] [place] [address],[facility], [place], [address], [facility] 06/17/2023 12:14:34 OBGyn Episode No OBEpisode recorded.
--- OUTSIDE RECORDS SUMMARY | 2023-07-13 12:47 | XMS_ITS | Data Portability ---
Author Name Unknown Address [address] [place] [id number] Phone [phone] Organization [place] [facility] [place] [facility] Address [address] [facility] [address] [place] [address] Care Team Providers Care Policewoman Name Role Phone VALENTÍN HINKLE Primary Care Provider DEVON COSTA Referring Provider Assessment Encounter Date Assessment Date Assessment LastModified by Organization Details LastModified Time 05/11/2017 05/11/2017 I spent a considerable amount of time discussing the diagnoses, treatment options, risks and benefits of various treatment options, prognosis and the need for compliance. I also reviewed patients systemic health history, social and personal history and current medications and the complete documentation of the same is available for review in the patient's electronic health record. 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 I reviewed the patient's most recent sleep study findings and discussed the significance of those with respect to the oral appliance treatment option. Contributing factors identified for her TMJ disorder include oral parafunctional habits, postural factors, coping with elevated stress? A panoramic radiograph was obtained in the office today and finding on the radiograph was discussed with the patient. This screening imaging revealed . Overall, the dento-alveolar tissue appeared WNL. I reviewed some self care strategies with the patient today. This included the use of moist-heat therapy on a regular basis, eating a soft diet and chewing bilaterally simultaneously. the technique in keeping the jaw relaxed at all times with the teeth apart and tongue resting on the roof of the mouth was demonstrated and discussed. Patient was also educated on the significance of compliance to self-care today. I recommended evaluation and treatment with a physical therapist to improve pain-free range of motion and function. Physical therapy strategies of exercises and modalities and the value of those were discussed with the patient. Fabrication of a Mandibular advancement deviceintra-oral appliance to address patient's diagnoses would be considered as a part of the treatment plan. The goals with the use of an intra-oral appliance was discussed with the patient today. The mechanism by which the Mandibular Advancement Device (MAD) would help address patient's symptoms were also discussed.Dental impressions for the fabrication of dorsal type MAD were taken today. Patient would be referred back to the sleep physician for a follow-up polysomnogram to assess the effectiveness of the MAD. A prescription for Cyclobenzaprine 10 mg qhs, was provided to the patient today. The risks and benefits associated with the prescribed medication was discussed with the patient today. Patient was asked to discontinue medication intake and return to clinic of significant side effects were noted from the medication. Total visit time 60 minutes. I spent 50 minutes on counselling and co-ordination of care. Not available 05/11/2017 16:22:50 06/08/2017 06/08/2017 The MAD was adjusted and fitted today. The goals with the use of the MAD was discussed with the patient today. The risks related to TMD symptoms and occlusal changes were discussed with the patient today. The patient was instructed to not use the appliance unless checked routinely by a dentist specialist. No further advancement was made on the MAD. Not available 06/08/2017 14:30:34 06/22/2017 06/22/2017 Mandibular advancement device (MAD) Respire Blue fit and occlusal comfort was reviewed. The screws were not adjusted bilaterally today. Jaw pain self-care was reviewed with the patient. MAD risks and benefits were reviewed with the patient. Patient was advised not to use the MAD if not reviewed on a regular basis . Patient was also requested to return for MAD review when a new dental restorative treatment is completed. PT is reserved until outcomes from MAD is reviewed first. Total visit time 20 minutes. I spent 15 minutes on counselling and co-ordination of care. Not available 07/05/2017 16:56:11 10/31/2017 10/31/2017 Mandibular advancement device (MAD) Dorsa APM positioner fit and occlusal comfort was reviewed.The screws were advanced 4 turns bilaterally today. the patient may advance the screw by 1mm every 3 days upto a total of three times including the advancement from today in the office, prior to review. Jaw pain self-care was reviewed with the patient. MAD risks and benefits were reviewed with the patient. Patient was advised not to use the MAD if not reviewed on a regular basis . Patient was also requested to return for MAD review when a new dental restorative treatment is completed. The patient may proceed with a follow-up PSG/HST as per the patient's sleep physician's recommendations. Total visit time 20 minutes. I spent 15 minutes on counselling and co-ordination of care. Not available 10/31/2017 14:16:56 Plan of Treatment Reminders Order Date Submit Date Provider Last Modified By Organization Details Last Modified Time Details Appointments None recorded. Lab None recorded. Referral physical therapist referral 2016 [place], [facility] [address], [address], [phone], 7 14:15:27 Procedures None recorded. Surgeries None recorded. Imaging XR, orthopanto gram 2016 017 [email or web address] [place], [address] [facility], [address], [address], 7 14:15:27 Medication Orders cyclobenza windy 10 mg tablet 2016 017 [facility] #[id number], [address] [place], [place], [phone], 7 14:30:14 cyclobenza windy 10 mg tablet 2016 017 [facility] #[id number], [address] [place], [place], [phone], 15:47:00 Patient TargetsNo targets recorded. Patient Instructions Encounter Date Encounter Id Patient Instructions Last Modified By Organization Details Last Modified Time 05/11/2017 [id number] Self Care for TMD [email or web address] Not availab le 05/24/2017 15:57:48 oral appliance preparation* Not available 05/20/2017 14:15:27 Reason for Referral Referring Physician: Lakeisha Corona, Pain Management, Encounter Date: 05/11/2017 Results Created Date Observation Date Name Description Value Unit Range Abnormal Flag LastModifiedBy Organization Detail LastModifiedTime 05/11/20 17 XR, ortho panto gram No observ ation record ed. Not Available 06/03/2017 16:09:43 Result Notes Documentation Provider Name and Address Organization Details Recorded Time Xr, Orthopantogram : Panoramic image of mandible [facility] 06/03/2017 16:09:44 Problems Name Status Onset Date Resolution Date Notes Provider Name and Address Organization Details Recorded Time Arthralgia of temporomandibular joint Active [facility], [facility] 05/11/2017 15:45:56 Myofascial pain Active 017 [facility] 05/11/2017 15:45:58 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 Procedures Surgical History Date Name Laterality Status Provider Name and Address Organization Details Recorded Time 06/08/20 17 [facility]ibular [facility] 06/08/2017 14:30:55 Hysterectomy completed [place] [facility] 05/11/2017 15:31:37 Imaging Results Imaging Date Name Status LastModified by Organization Details LastModified Time 05/11/2017 XR, orthopantogram completed Inform ation not available 06/03/2017 16:09:43 Procedure Notes None recorded. Medical Equipment None Reported. Allergies Allergen ID Allergen Name Allergen Category Reaction Reaction Severity Criticality Documentation Date Start Date Code Code System Note Provider Name and Address Organization Details Recorded Time 41193 Substance with sulfonami de structure and antibacte rial mechanism of action (substanc e) medicatio n Not available Not available Not available 05/11/2017 [id number] SNOMED [place] [facility] 7 15:13:00 Medications Name Sig Start Date Stop Date Status Note LastModified by Organization Details LastModified Time cyclobenzapri ne 10 mg tablet One tablet at bedtime . 2017 active Not Available Not Available Not Avai lable prednisone 10 mg tablet active Not Available Not Available No t Available doxycycline hyclate 100 mg capsule active Not Available Not Available N ot Available azithromycin 250 mg tablet 05/11 completed Not Available Not Available Not Available fluconazole 150 mg tablet 05/11 completed Not Available Not Available Not Available phenazopyridi ne 200 mg tablet 05/11 completed Not Available Not Available Not Available citalopram 20 mg tablet daily active Not Available Not Available No t Available estradiol 1 mg tablet once daily active Not Available Not Available No t Available metronidazole 0.75 % topical cream 05/11 completed Not Available Not Available Not Available fluticasone propionate 50 mcg/actuation nasal spray,suspens ion 05/11 completed Not Available Not Available Not Available metronidazole 0.75 % topical gel active Not Available Not Available Not Available amoxicillin 875 mg-potassium clavulanate 125 mg tablet 05/11 completed Not Available Not Available Not Available cyclobenzapri ne 5 mg tablet 05/11 completed Not Available Not Available Not Available nitrofurantoi n monohydrate/m acrocrystals 100 mg capsule 05/11 completed Not Available Not Available Not Available Vitals Date Recorded Body height Body mass index (BMI) Body weight Heart rate Systolic blood pressure Diastolic blood pressure Provider Name and Address Organization Details Last Updated DateTime 7 180.34 cm 27.2 kg/m2 86583.5 1 g 70 /min 125 mm[Hg] 77 mm[Hg] [place] [facility] 7 15:13:39 Date Recorded Body height Body mass index (BMI) Body weight Systolic blood pressure Diastolic blood pressure Provider Name and Address Organization Details Last Updated DateTime 06/08/2017 180.34 cm 27.2 kg/m2 20574.51 g 104 mm[Hg] 70 mm[Hg] Lucy meade [facility] 7 14:09:06 Date Recorded Body height Body mass index (BMI) Body weight Heart rate Systolic blood pressure Diastolic blood pressure Provider Name and Address Organization Details Last Updated DateTime 7 180.34 cm 27.2 kg/m2 09167.5 1 g 80 /min 128 mm[Hg] 75 mm[Hg] Kalyani meade [facility] 7 14:04:17 Date Recorded Body height Body mass index (BMI) Body weight Heart rate Systolic blood pressure Diastolic blood pressure Provider Name and Address Organization Details Last Updated DateTime 8 180.34 cm 27.2 kg/m2 81224.5 1 g 68 /min 126 mm[Hg] 70 mm[Hg] Yogesh [place] [facility] 8 14:04:14 Social History Question Answer Notes LastModified by Organizat ion Details LastModified Time Tobacco Smoking Status Never Smoker [place] [facility] 05/11/2017 15:30:35 What Is Your Level Of Alcohol Consumption? Occasional Information not available 05/11/2017 Auto Related Injury? No Information not available 05/11/2017 What Is Your Level Of Caffeine Consumption? Moderate Information not available 05/11/2017 Are You Currently Employed? Yes Information not available 05/11/2017 Currently No Information not available 05/11/2017 What Type Of Diet Are You Following? 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 With Others Information not available 05/11/2017 Marital Status Informatio n not available 05/11/2017 What Number Best Describes Your Pain On Average In The Past Week? (0=no Pain, 10=pain As Bad As You Can Imagine) 0 Information not available 05/11/2017 What Number Best Describes How, During The Past Week, Pain Has Interfered With Your Enjoyment Of Life? (0=does Not Interfere, 10= Completely Interferes) 0 Information not available 05/11/2017 What Number Best Describes How, During The Past Week, Pain Has Interfered With Your General Activity? (0=does Not Interfere, 10=completely Interferes) 0 Information not available 05/11/2017 Caffeine Use - How Much? 1 Cup Information not available 05/11/2017 How Did Primary Problem Begin? Sleep Apnea Information not available 05/11/2017 What Was The Date Of Your Most Recent Tobacco Screening? 10/31/2017 Information not available 01/25/2019 If Injured, Is Litigation Ongoing? No Information not available 05/11/2017 General Stress Level Low Information not available 05/11/2017 Do You Use Any Illicit Or Recreational Drugs? No Information not available 05/11/2017 Work Related Injury? No Information not available 05/11/2017 Sex: Female Functional Status Question Answer Note LastModified by Organizat ion Details LastModified Time What is your exercise level? Occasional Information not available 05/11/2017 Mental Status None recorded. Family History Nothing Reported. Medical History Condition Response Coronary Artery Disease N Other N Gout N Chronic fatigue syndrome N Hyperthyroidism N Premenstrual syndrome (PMS) N MRSA N Head Trauma/Injury N Emphysema N Irritable bowel syndrome N Glaucoma N Lung Disease N COPD N Hypothyroidism N Depression N Pneumonia N Pacemaker N Obstructive Sleep Apnea Y Anxiety Disorder Y Autoimmune disease N Muscle, Joint, or Bone Problems N Vision or Eye Problems N Arthritis N Serious Illness or Injuries N Acid Reflux (GERD) N Cancer N Stroke N Eating disorder N Neck Injury N Back Injury N High Cholesterol N History of chemotherapy N Neurologic Disorder N Liver Disease N Organ Transplant N Rheumatoid Arthritis N Headaches N Fibromyalgia N Kidney Disease N Allergies/Hayfever Y Post traumatic stress disorder (PTSD) N Parkinson's Disease N Migraines N Brain Tumors N Anemia N Multiple Sclerosis N Immune System Disorder N Meningitis N Pancreatic disease N Heart Attack ([place]) N Stomach Ulcers N Back pain N Diabetes N Bleeding Disorder N Seizures/Epilepsy N Sjogren's syndrome N Tuberculosis N AIDS/HIV N History of radiation therapy N Hyperlipidemia N Dementia N Asthma N Physical or sexual abuse N Substance Abuse N Peripheral Vascular Disease N Psoriasis N Reflux/GERD N Mental Problems N Vertigo N Sleep Disorder N Aneurysm N Hepatitis N Heart Disease N Neuropathy N Pulmonary Embolism N Hypertension N Osteoporosis Y Gynecological HistoryNo gynecological history recorded. Obstetrics History GPAL:G 0 P 0 0 0 0 Immunizations Vaccine Type Date Status Provider Name and Address Organization Details Recorded Time influenza, injectable, quadrivalent 04/03/2017 completed [place] [facility] 05/11/2017 15:30:25 Past Encounters Encounter ID Performer Location Encounter Start Date Encounter Closed Date Diagnosis/Indication [id number] [place] [address] [place] [address] 05/11/2017 14:56:02 05/11/2017 17:07:41 Arthralgia of temporomandibular joint Articular disc disorder of temporomandibular joint Myofascial pain Obstructive sleep apnea of adult [id number] [place] [address] [place] [address] 06/08/2017 13:55:06 06/08/2017 14:31:46 Myofascial pain Osteoarthritis Obstructive sleep apnea of adult [id number] [facility] [address] [place] [address] 06/22/2017 13:55:49 06/22/2017 15:11:41 Obstructive sleep apnea of adult Myofascial pain Snoring Osteoarthritis Arthralgia of temporomandibular joint Articular disc disorder of temporomandibular joint [id number] [facility] [address] [place] [address] 10/31/2017 13:57:17 10/31/2017 14:20:05 Myofascial pain Obstructive sleep apnea of adult Snoring Osteoarthritis Health Concerns Section Related Observation LastModified by Organization Detai ls LastModified Time None Recorded Concern Status LastModified by Organization Details LastModified Time None Recorded Advance Directives Directive None Recorded Payers Encounter Date Sequence Insurance Name Policy Number Policy Patel Covered Member ID Patel Member ID Guarantor Name 10/31/2017 1 PREFERREDONE [id number] Worthy Candida [id number] Maryann Candida 06/22/2017 1 PREFERREDONE [id number] Worthy Candida [id number] Maryann Candida 06/08/2017 1 PREFERREDONE [id number] Maryann Worthy Candida [id number] Maryann Candida 05/11/2017 1 PREFERREDONE [id number] Worthy Candida [id number] Maryann Candida Notes Date Note Type Note Provider Name and Address Organization Details Recorded Time 05/11/2017 text/html HPI Notes: Obstructive Sleep Apnea Reported by patient. Quality: loud snoring Onset/Timing: recurring Severity: does not limit daily activities; no frequent sore throats resulting in excess missed days from school / work per year; no awakening in the middle of the night with sore throat; difficulty getting going in the morning Location: no enlarged tonsils; no throat pain; no dryness of mouth; nasal passage blockage left Context: no shift work; not currently taking medication to help sleep; lack of adequate sleep Associated Symptoms: morning headache; likelihood of falling asleep during the day while watching television 0; likelihood of falling asleep during the day while sitting inactive in a public place 3; likelihood of falling asleep during the day while sitting quietly after lunch (no alcohol) 3; likelihood of falling asleep during the day in a car while stopped in traffic 0; likelihood of falling asleep during the day as passenger in car for extended time 3; likelihood of falling asleep during the day while lying down to rest in the afternoon 3; likelihood of falling asleep during the day while sitting and reading 2; likelihood of falling asleep during the day while sitting and talking to someone 1; pain in the jaw; no popping/clicking; grinding teeth; [place]: 15 Prior Tests: thyroid panel; allergy testing; home sleep study; PSG Prior opinion other ENT Notes: April 09, 2017 patient had a home sleep study and these were the findings: AHI = 4 and RDI = 18 CAMERON Mariano DDS [facility] 05/20/2017 14:15:31 06/08/2017 text/html HPI Notes: Maryann presents today for delivery of a MAD. She states that there has not been any change in her symptoms since last visit. CAMERON Mariano DDS [facility] 06/08/2017 14:31:27 06/22/2017 text/html HPI Notes: Shanna greer presents today for follow-up. She is effectively using the mandibular advancement oral appliance. Subjectively they believe the appliance to be very effective in improving sleep quality. She recognizes improved daytime tiredness and improvement in restorative sleep. She denies side effects including jaw pain. She is not using the morning bite art conservator as recommended. Adjustments to the oral appliance are believed to be necessary. CAMERON Mariano DDS [facility] 07/05/2017 16:56:35 10/31/2017 text/html HPI Notes: Shanna greer presents today for follow-up. (S)he is effectively using the mandibular advancement oral appliance. Subjectively they believe the appliance to be effective in improving sleep quality. (S)he recognizes unchanged daytime tiredness and improvement in restorative sleep. (S)he has mild side effects including aggravation of a preexisting TMD. (S)he is not using the morning bite art conservator as recommended. Adjustments to the oral appliance are believed to be necessary. CAMERON Mariano DDS [facility] 10/31/2017 14:17:13 OBGyn Episode No OBEpisode recorded.
--- OUTSIDE RECORDS SUMMARY | 2023-07-13 12:47 | XMS_ITS | Clinical Summary ---
Author Name Unknown Organization [facility] Address [place], [place] [address] Care Team Providers Care Sales Enablement Manager Name Role Phone Staff, Other Clinical Primary Care Provider Unav ailable Allergies Active Allergy Reactions Criticality Noted Date Comments Oxymetazoline Other - Describe In Comment Field 03/17/2023 Swelling of turbinates Sulfa (Sulfonamide Antibiotics) Hives 03/17/2023 Medications Medication Sig Dispensed Refills Start Date End Date Status citalopram (CELEXA) 20 mg tablet Take 20 mg by mouth at bedtime. 0 Active ondansetron (ZOFRAN ODT) [address] 4 mg on the tongue every 8 hours if needed for Nausea/Vomiting. 0 Active rosuvastatin (CRESTOR) 5 mg tablet Take 5 mg by mouth at bedtime. 0 Active acetaminophen (TYLENOL EXTRA STRGTH) 500 mg tablet Take 1,000 mg by mouth every 6 hours if needed for Pain. Max acetaminophen dose: 4000mg in 24 hrs. 0 Active magnesium oxide (MAG-OX 400) 400 mg tablet Take 400 mg by mouth once daily. 0 Active cholecalciferol (Vitamin D) 1,000 unit tablet Take 1,000 units by mouth once daily. 0 Active multivitamin (MVI) tablet Take 1 Capsule by mouth once daily. 0 Active ergocalciferol (VITAMIN D2) 10 mcg (400 unit) tablet Take 400 units by mouth once daily. 0 Active valACYclovir (VALTREX) 1 gram tablet Take 1 g by mouth 2 times daily if needed. 0 03/28/2023 Active Active Problems Problem Noted Date Diagnosed Date Ureterolithiasis 03/17/2023 Hyperlipidemia 03/17/2023 Anxiety 03/17/2023 Encounters Date Type Department Care Team Description 05/16/2023 7:21 AM AIRCRAFT AVIONICS TECHNICIAN Anesthesia Event [facility] [address] [place] [address] Gema Anne MD Crane, Heather Anne, CRNA 05/16/2023 7:15 AM AIRCRAFT AVIONICS TECHNICIAN - 05/16/2023 8:35 AM AIRCRAFT AVIONICS TECHNICIAN Surgery [facility] [address] [place] [address] Reji Ferrera MD RIGHT EXTRACORPOREAL SHOCKWAVE LITHOTRIPSY 05/16/2023 5:37 AM AIRCRAFT AVIONICS TECHNICIAN - 05/16/2023 1:53 PM AIRCRAFT AVIONICS TECHNICIAN Hospital Encounter [facility] [address] [place] [address] Reji Ferrera MD Right renal stone (Primary Dx) Discharge Disposition: Home Self Care 05/16/2023 Travel 05/13/2023 Travel from Last 3 Months Social History Tobacco Use Types Packs/Day Years Used Date Smoking Tobacco: Never Smokeless Tobacco: Never Tobacco Cessation:Counseling Given: Not Answered Alcohol Use Standard Drinks/Week Comments Never 0 (1 standard drink = 0.6 oz pur e alcohol) Social Connections Answer Date Recorded Frequency of Communication with Friends and Fami ly Not on file 03/17/2023 Sex and Gender Information Value Date Recorded Sex Assigned at Not on file Gender Identity Not on file Sexual Orientation Not on file Obstetrics History Last Filed Vital Signs Vital Sign Reading Time Taken Comments Blood Pressure 120/62 05/16/2023 9:45 AM AIRCRAFT AVIONICS TECHNICIAN Pulse 60 05/16/2023 9:45 AM AIRCRAFT AVIONICS TECHNICIAN Temperature 36 ??C (96.8 ??F) 05/16/2023 8:06 AM AIRCRAFT AVIONICS TECHNICIAN Respiratory Rate 12 05/16/2023 9:30 AM AIRCRAFT AVIONICS TECHNICIAN Oxygen Saturation 100% 05/16/2023 9:45 AM AIRCRAFT AVIONICS TECHNICIAN Inhaled Oxygen Concentration - - Weight 87.1 kg (192 lb) 05/16/2023 6:27 AM AIRCRAFT AVIONICS TECHNICIAN Height 180.3 cm (5' 11) 05/16/2023 6:27 AM AIRCRAFT AVIONICS TECHNICIAN Body Mass Index 26.78 05/16/2023 6:27 AM AIRCRAFT AVIONICS TECHNICIAN Plan of Treatment Health Maintenance Due Date Last Done Comments Tdap 1974 Depression screening for age 12+ 1975 HIV for age 15-65 1978 BMI (ht and wt on same day) for age 18+ 1981 Hepatitis C screening for ag e 18-79 1981 Tetanus booster 1983 Pap test for age 21-65 1984 Colonoscopy through age 75 2008 Lipids for age 45-75 2008 Mammogram for age 45-75 2008 Zoster (shingles) series for age 50+ (1 of 2) 2013 COVID-19 vaccine series (2022- season) 2023 03/31/2022, 11/11/2021, 04/21/2021 Influenza for age 50-64 03/04/2023 Pneumococcal series for age 6-64 Aged Out No longer eligible b ased on patient's age to complete this topic Medical Devices Implanted Type Area Surface Hydrologist Device Identifier Shelf Expiration Date Model / Serial / Lot Stent Uret [id number] Contour - [id number] Implanted:Qty: 1 on 03/18/2023 by Reji Ferrera MD at [facility] Left: Ureter [facility] 11/01/2025 [id number] / / [id number] Procedures Procedure Name Priority Date/Time Associated Diagnosis Comments SUPRAGLOTTIC-LMA Routine 05/16/2023 7:43 AM AIRCRAFT AVIONICS TECHNICIAN LITHOTRIPSY EXTRACORPOREAL SHOCK WAVE RENAL UNILATERAL VENDOR Elective 05/16/2023 7:07 AM AIRCRAFT AVIONICS TECHNICIAN RIGHT RENAL STONE Case Notes [facility] [place] [facility] [place] on 05/10/2023 Special Needs WT 195 SCAN-CARDIAC STRIP 05/16/2023 12 :00 AM AIRCRAFT AVIONICS TECHNICIAN from Last 3 Months Results * HCHG MASK PR5 (05/16/2023 7:43 AM AIRCRAFT AVIONICS TECHNICIAN) Narrative Catarina Guillaume CRNA - 05/16/2023 7:43 AM AIRCRAFT AVIONICS TECHNICIAN Catarina Guillaume CRNA ? 05/16/2023 ??7:44 AM Procedure: Supraglottic Patient location during procedure: OR Supraglottic Airway Properties Mask Ventilation: easy and oral airway Type: unique Tube Size: 4 Insertion Attempts: 2 Placement Verification: auscultation and CO2 detection Assessment Assessment: dentition unchanged and atraumatic Airway Intervention: cuff Pressure within defined Additional Notes Small mouth opening. Catarina Guillaume SPLITTING MACHINE OPERATOR ANESTHESIA PX NO TE ORDERABLES * SCAN-CARDIAC STRIP (05/16/2023 12:00 AM AIRCRAFT AVIONICS TECHNICIAN) Narrative 05/16/2023 12:00 AM AIRCRAFT AVIONICS TECHNICIAN Ordered by an unspecified provider. Other Clinical Staff OTHER from Last 3 Months Advance Directives Latest Code Status on File Code Status Date Activated Date Inactivated Comments Full Code 05/16/2023 6:09 AM 05/16/2023 3:58 PM Question Answer Comments Code Status Discussion: Not Discussed Code Status History Code Status Date Activated Date Inactivated Comments Full Code 03/17/2023 8:07 PM 03/18/2023 8:11 PM Question Answer Comments Code Status Discussion: Reviewed Preferences Care Teams Sales Enablement Manager Relationship Specialty Start Date End Date Staff, Other Clinical . PCP - General 03/16/23
== END 2023-07-06 09:42 | disposition home or self-care (01) ==
LOC: NFLDREF 07-13 12:41
PROVIDERS: PCP Physician Assistant Medical; Referring Provider Physician Assistant Medical; Visit Provider Physician Assistant Medical
DX: R30.0 Dysuria (principal)
CPT/HCPCS: 87086; 87186

== ENCOUNTER 2023-08-15 13:51 | Outpatient (CLI) | payer OTHER, SELFPAY ==
--- OUTSIDE RECORDS SUMMARY | 2023-08-15 13:57 | XMS_ITS | Clinical Summary ---
Author Name Unknown Organization [facility] Address [place], [place] [address] Care Team Providers Care Automotive Engineering Technician Name Role Phone Staff, Other Clinical Primary [...] Department Care Team Description 05/16/2023 7:21 AM LOG GRADER Anesthesia Event [facility] [address] [place] [address] Gema Anne MD Crane, Heather Anne, KIRSTIN 05/16/2023 7:15 AM LOG GRADER - 05/16/2023 8:35 AM LOG GRADER Surgery [facility] [address] [place] [address] Reji Ferrera MD RIGHT EXTRACORPOREAL SHOCKWAVE LITHOTRIPSY 05/16/2023 5:37 AM LOG GRADER - 05/16/2023 1:53 PM LOG GRADER Hospital Encounter [facility] [address] [place] [address] Reji Ferrera MD Right renal stone (Primary Dx) Discharge Disposition: Home Self Care 05/16/2023 Travel from Last 3 Months Social History [...] Comments Blood Pressure 120/62 05/16/2023 9:45 AM LOG GRADER Pulse 60 05/16/2023 9:45 AM LOG GRADER Temperature 36 ??C (96.8 ??F) 05/16/2023 8:06 AM LOG GRADER Respiratory Rate 12 05/16/2023 9:30 AM LOG GRADER Oxygen Saturation 100% 05/16/2023 9:45 AM LOG GRADER Inhaled Oxygen Concentration - - Weight 87.1 kg (192 lb) 05/16/2023 6:27 AM LOG GRADER Height 180.3 cm (5' 11) 05/16/2023 6:27 AM LOG GRADER Body Mass Index 26.78 05/16/2023 6:27 AM LOG GRADER Plan of Treatment Health Maintenance Due Date [...] (1 of 2) 2013 COVID-19 vaccine series ( season) 2023 03/31/2022, 11/11/2021, 04/21/2021 Influenza for age 50-64 03/04/2023 Pneumococcal series for age 6-64 Aged Out No longer eligible b ased on patient's age to complete this topic Medical Devices Implanted Type Area Magisterial District Judge Device Identifier Shelf Expiration Date Model / Serial / Lot Stent Uret [id number] Contour - [id number] Implanted:Qty: 1 on 03/18/2023 by Reji Ferrera MD at [facility] Left: Ureter [facility] 11/01/2025 [id number] / / [id number] Procedures Procedure Name Priority Date/Time Associated Diagnosis Comments SUPRAGLOTTIC-LMA Routine 05/16/2023 7:43 AM LOG GRADER LITHOTRIPSY EXTRACORPOREAL SHOCK WAVE RENAL UNILATERAL VENDOR Elective 05/16/2023 7:07 AM LOG GRADER RIGHT RENAL STONE Case Notes [facility]SW[facility] dis[place] [facility] [place] 05/10/2023 Special Needs WT 195 SCAN-CARDIAC STRIP 05/16/2023 12 :00 AM LOG GRADER from Last 3 Months Results * HCHG MASK PR5 (05/16/2023 7:43 AM LOG GRADER) Narrative Catarina Guillaume CRNA - 05/16/2023 7:43 AM LOG GRADER Catarina Guillaume CRNA ? 05/16/2023 ??7:44 AM Procedure: Supraglottic Patient location during procedure: OR Supraglottic Airway Properties Mask Ventilation: easy and oral airway Type: unique Tube Size: 4 Insertion Attempts: 2 Placement Verification: auscultation and CO2 detection Assessment Assessment: dentition unchanged and atraumatic Airway Intervention: cuff Pressure within defined Additional Notes Small mouth opening. Catarina Dejesuse Aundrea CUTTER APPRENTICE HAND ANESTHESIA PX NO TE ORDERABLES * SCAN-CARDIAC STRIP (05/16/2023 12:00 AM LOG GRADER) Narrative 05/16/2023 12:00 AM LOG GRADER Ordered by an unspecified provider. Other Clinical [...] Code Status Discussion: Reviewed Preferences Care Teams Automotive Engineering Technician Relationship Specialty Start Date End Date Staff, Other Clinical . PCP - General 03/16/23
== END 2023-08-15 13:52 | disposition home or self-care (01) ==
LOC: LKVREF 13:55
PROVIDERS: PCP Physician Assistant Medical; Visit Provider Physician Assistant Medical
DX: R00.2 Palpitations (principal); Z13.29 Encounter for screening for other suspected endocrine disorder
CPT/HCPCS: 84443

== ENCOUNTER 2023-08-19 13:49 | Outpatient (CLI) | payer OTHER, SELFPAY ==
--- OUTSIDE RECORDS SUMMARY | 2023-08-19 13:52 | XMS_ITS | Data Portability ---
Author Name Unknown Address [address] [place] [address] Phone [phone] Organization [facility], [facility] Address [address] [place] [address] Care Team Providers Care Chinchilla Farmer Name Role Phone STERLING PEREZ Primary Care Provider [phone] Assessment Encounter Date Assessment Date Assessment LastModified [...] with surgery prior to her trip to [facility] in 3 weeks. ?? 1. Left proximal [...] N/V, other concerns - schedule with 1st [facility] MD for cysto, left URS/HLL/possible ureteral stent 2. Right lower pole stone - surveillance for now - KUB in 1 year [email or web address] Not available 03/16/2023 17:46:39 03/23/2023 03/23/2023 57 Y/O MALE, S/P LEFT URS, HLL, LEFT STENT. HERE FOR STENT REMOVAL. HAD C.T. DONE IN [place] WHICH SHOWED NON OBSTRUCTIVE RT LOWER POLE [...] recorded. Lab urinalysis , dipstick 2022 023 [email or web address] [facility], [address], [place], [address], 10:21:48 Referral None recorded. Procedures None recorded. Surgeries None recorded. Imaging None recorded. Medication Orders None recorded. Patient TargetsNo targets recorded. Patient InstructionsNo instructions recorded. Reason for Referral None Reported. Results Created Date Observation Date Name Description Value Unit Range Abnormal Flag LastModifiedBy Organization Detail LastModifiedTime 03/16/2003/16/2023 urina lysis , dipst ick Color-Status Yellow Not Available [facility] [address], [place], [address], 03/16/2023 10:21:20 03/16/2003/16/2023 urina lysis , dipst ick Clarity-Stat us Clear Not Available [facility] [address], [place], [address], 03/16/2023 10:21:20 03/16/20 23 03/16/2023 urina lysis , dipst ick pH-Status 5.0 Not Available [facility] [address], [place], [address], 03/16/2023 10:21:20 03/16/20 23 03/16/2023 urina lysis , dipst ick Nitrates-Sta tus negati ve Not Available [facility] [address], [place], [address], 03/16/2023 10:21:20 03/16/20 23 03/16/2023 urina lysis , dipst ick Blood-Status Modera te Not Available [facility] [address], [place], [address], 03/16/2023 10:21:20 03/16/20 23 03/16/2023 urina lysis , dipst ick Leuko-Status Trace Not Available [facility] [address], [place], [address], 03/16/2023 10:21:20 05/04/20 23 2023 XR, kidne y + urete r + bladd er EXAM: XR, KIDNEY + URETER + BLADDE R [place]ATI ON: [facility] DATE: 023 INDICA TION: Calcul us of [...] Alfonzo Bowen MD on 2022 at 14:39 [place] [facility] [place] [address], [place], [address], 05/05/2023 22:12:50 06/17/20 23 06/17/2023 XR, kidne y + urete r + bladd er EXAM: XR, KIDNEY + URETER + BLADDE R LOCATI ON: [facility] DATE: 2022 INDICA TION: [...] Magdaleno Quintanilla MD on 2022 at 16:[address] [facility] [place] [address], [place], [address], 06/17/2023 17:39:45 Result Notes Documentation Provider Name and Address Organization Details Recorded Time Xr, Kidney + Ureter + Bladder : EXAM: XR, KIDNEY + URETER + BLADDER LOCATION: [facility] DATE: 2023 INDICATION: Calculus of kidney COMPARISON: None. IMPRESSION: 6 mm stone noted in the mid to inferior pole of the right kidney. No definite left renal stones are identified. Nonobstructive bowel gas pattern. Mild stool noted throughout the colon. This report was electronically interpreted by: Alfonzo Bowen MD on 2023 at 14:39 Reji Ferrera MD [address] [place] [address],[address], [place], [address], [facility] 05/05/2023 22:12:50 Xr, Kidney + Ureter + Bladder : EXAM: XR, KIDNEY + URETER + BLADDER LOCATION: [facility] DATE: 06/17/2023 INDICATION: Calculus of kidney. COMPARISON: 2023. IMPRESSION: No visible urolithiasis. CT could provide more sensitive assessment. Previously described right-sided intrarenal stone is difficult to visualize. Nonobstructive bowel. This report was electronically interpreted by: Magdaleno Quintanilla MD on 06/17/2023 at 16:02 Reji Ferrera MD [address] [place] [address],[address], [address], [facility] 06/17/2023 17:39:45 Problems Name Status Onset Date Resolution Date Notes Provider Name and Address Organization Details Recorded Time Ureteric stone Active 3 Mehnaz Smith PA-C [address] [place] [address],[address], [place], [address], [facility] 03/16/2023 09:56:55 Kidney stone Active 3 Mehnaz Smith PA-C [address] [place] [address],[address], [address], [facility] 03/16/2023 09:57:00 Problem Notes None recorded. Procedures Surgical History Date Name Laterality Status Provider Name and Address Organization Details Recorded Time 3 Cystoscopy with foreign body/stent removal completed Reji Ferrera MD [address] [place] [address],[address], [address], [facility] 03/23/2023 14:17:04 2 Colonoscopy completed Reji Ferrera MD [address] [place] [address],[address], [address], [facility] 06/17/2023 12:05:01 Imaging Results Imaging Date Name Status LastModified by Organiz ation Details LastModified Time 2023 XR, kidney + ureter + bladder completed [address] [facility] [place] [address], [place], [address], 05/05/2023 22:12:50 06/17/2023 XR, kidney + ureter + bladder completed rug[address] [facility] [place] [address], [place], [address], 06/17/2023 17:39:45 Procedure Notes None recorded. Medical Equipment None Reported. Allergies Allergen ID Allergen Name Allergen Category Reaction Reaction Severity Criticality Documentation Date Start Date Code Code System Note Provider Name and Address Organization Details Recorded Time 826148 Substance with sulfonami de structure and antibacte rial mechanism of action (substanc e) medicatio n hives Not available Not available 03/16/2023 80180 [address] [facility] 3 10:20:03 743229 Afrin medicatio n Not available Not available Not available 06/17/2023 70232 1 RxNorm Reji Ferrera MD [address] [facility],[address], [address], [facility] 3 12:03:27 Medications Name Sig Start [...] Updated DateTime 03/16/2023 180.34 cm 27.2 kg/m2 74860.51 g Evette meade [facility] 03/16/2023 10:19:29 Date Recorded Body height Body mass index (BMI) Body weight Provider Name and Address Organization Details Last Updated DateTime 03/23/2023 180.34 cm 27.2 kg/m2 93114.51 g Reji Ferrera MD [address] [place] [address], [id number] [place] [address] 03/23/2023 14:02:15 Date Recorded Body height Body mass index (BMI) Body weight Provider Name and Address Organization Details Last Updated DateTime 2023 180.34 cm 27.1 kg/m2 73707.92 tacos Ferrera MD [address] [place] [address] 2023 15:48:57 Date Recorded Body height Body mass index (BMI) Body weight Provider Name and Address Organization Details Last Updated DateTime 06/17/2023 180.34 cm 27.1 kg/m2 28890.92 tacos Ferrera MD [address] [place] [address],[address] 06/17/2023 12:03:13 Social History Question Answer Notes LastModified by Organizat ion Details LastModified Time Tobacco Smoking Status Former Smoker Evette meade [facility] 03/16/2023 10:20:59 What Is Your Level Of Alcohol Consumption? Occasional [email or web address] Information not available 03/16/2023 What Is Your Level Of Caffeine Consumption? Occasional Information not available 06/17/2023 When Did You Quit Smoking? 16+yearsgloria menjivar [email or web address] Information not available 03/16/2023 What Was The [...] High Blood Pressure N Kidney Stones Y Lung Disease N Depression N GERD/Acid Reflux N Sexually Transmitted Infection N Cancer N High Cholesterol N Diabetes N Bleeding Disorder N Heart Disease N Gynecological HistoryNo gynecological history recorded. Obstetrics History GPAL:G 0 P 0 0 0 0 Immunizations Vaccine Type Date Status Provider Name and Address Organization Details Recorded Time influenza, injectable, quadrivalent 04/07/2021 completed Evette meade [facility] 03/16/2023 10:19:44 influenza, recombinant, quadrivalent,inject able, preservative free 04/06/2019 completed Evette meade [facility] 03/16/2023 10:19:44 zoster recombinant 03/26/2020 completed Evette grovess halina [facility] 03/16/2023 10:19:44 zoster recombinant 06/16/2020 completed Evette medae [facility] 03/16/2023 10:19:44 COVID-19, mRNA, LNP-S, PF, 30 mcg/0.3 mL dose 07/22/[address] [facility] 03/16/2023 10:19:44 COVID-19, mRNA, LNP-S, PF, 30 mcg/0.3 mL dose 04/21/2021 erma meade [facility] 03/16/2023 10:19:44 COVID-19, mRNA, LNP-S, PF, 30 mcg/0.3 mL dose 07/01/2020 completed Evette Salamanca null, [facility] 03/16/2023 10:19:44 COVID-19, mRNA, LNP-S, PF, 30 mcg/0.3 mL dose, shawn-sucrose 11/11/2021 completed Evette Salamanca null, [facility] 03/16/2023 10:19:44 COVID-19, mRNA, LNP-S, bivalent, PF, 30 mcg/0.3 mL dose 03/31/2022 completed Evette Salamanca null, [facility] 03/16/2023 10:19:44 influenza, unspecified formulation 04/27/2018 completed Evette Salamanca null, [facility] 03/16/2023 10:19:44 Tdap 10/08/2014 [facility] 10:19:44 Influenza, seasonal, injectable, preservative free 04/06/2010 completed Evette Salamanca null, [facility] 03/16/2023 10:19:44 Influenza, seasonal, injectable, preservative free 04/06/2011 completed Evette Salamanca null, [facility] 03/16/2023 10:19:44 Influenza, seasonal, injectable, preservative free 04/06/2012 completed Evette Salamanca null, [facility] 03/16/2023 10:19:44 Influenza, seasonal, injectable, preservative free 04/10/2020 completed Evette Salamanca null, [facility] 03/16/2023 10:19:44 Influenza, seasonal, injectable, preservative free 04/26/2013 completed Evette Salamanca null, [facility] 03/16/2023 10:19:44 influenza, whole 04/23/2014 completed E[place]tte [place] null, [facility] 03/16/2023 10:19:44 Novel [id number], preservative-free 04/25/2009 [facility]/16/2023 10:19:44 Td (adult), 2 Lf tetanus toxoid, preservative free, adsorbed 02/05/2005 completed Evette meade [facility] 03/16/2023 10:19:44 Hep B, adolescent or pediatric 06/09/2007 [facility]/16/2023 10:19:44 influenza, injectable, quadrivalent, preservative free 03/31/2017 completed Evette meade [facility] 03/16/2023 10:19:44 influenza, injectable, quadrivalent, preservative free 03/31/2022 completed Evette meade [facility] 03/16/2023 10:19:44 influenza, injectable, quadrivalent, preservative free 04/08/2016 completed Evette meade [facility] 03/16/2023 10:19:44 influenza, injectable, quadrivalent, preservative free 04/10/2015 completed Evette meade [facility] 03/16/2023 10:19:45 influenza, injectable, quadrivalent, preservative free 04/25/2009 completed Evette meade [facility] 03/16/2023 10:19:45 Past Encounters Encounter ID Performer Location Encounter Start Date Encounter Closed Date Diagnosis/Indication [id number] JAY[facility] [address] [place] [address] 03/16/2023 09:41:24 03/18/2023 16:06:46 Ureteric stone Kidney stone [id number] [place] [address] 03/23/2023 13:47:32 04/02/2023 15:24:36 Ureteric stone History of calculus of kidney [id number] [place] [address] 2023 15:23:51 05/16/2023 18:53:24 History of calculus of kidney [id number] [place] [address] 06/17/2023 11:53:23 06/17/2023 12:37:25 Kidney stone Health Concerns Section Related Observation LastModified by Organization Detai ls LastModified Time None Recorded Concern Status LastModified by Organization Details LastModified Time None Recorded Advance Directives Directive None Recorded Payers Encounter Date Sequence Insurance Name Policy Number Policy Patel Covered Member ID Patel Member ID Guarantor Name 06/17/2023 1 PREFERREDONE Maryann A Candida [id number] Maryann Candida 2023 1 PREFERREDONE Maryann A Candida [id number] Maryann Candida 03/23/2023 1 PREFERREDONE Amryann A Candida [id number] Maryann Candida 03/16/2023 1 PREFERREDONE Maryann A Candida [id number] Maryann Candida Notes Date Note Type Note Provider Name and Address Organization Details Recorded Time 03/16/2023 text/html HPI Notes: 57F with left ureteral stone and kidney stone. Seen at [place] ED on 03/14 for acute onset left [...] UTI x1 in remote past. Leaves for Khush in 3 weeks so hoping to have stone addressed prior. UA with moderate blood, trace leuks, o/w negative Labs: (reviewed) 03/14/23 UA 50-100 RBC, 0-2 WBC, neg nitrite, neg leuk est 03/14/23 Cr 1.0 Imaging: (reviewed) 03/14/23 CT A/P: 5 mm prox left ureteral stone with hydro; additional RLP stone PMH: migraines, SCC PSH: Mehnaz Smith PA-C [address] [place] [address],[address], [place], [address], [place] [facility] 03/16/2023 17:46:42 03/23/2023 text/html HPI Notes: 57F with left ureteral stone and kidney stone. Seen at [place] ED on 03/14 for acute onset left [...] UTI x1 in remote past. Leaves for Khush in 3 weeks so hoping to have [...] HERE FOR STENT REMOVAL. Reji Ferrera MD [address] [place] [address],[address], [place], [address], [facility] 03/25/2023 15:25:48 2023 text/html HPI Notes: 57 y/ o female, hx bilateral kidney stones. s/p left eswl. DOING WELL. KUB LEFT LOOKS GOOD. ALSO SHE HAS AN 8 MM RT RENAL STONE AND REQUESTS TREATMENT. Reji Ferrera MD [address] [place] [address],[address], [place], [address], [facility] 05/06/2023 08:56:26 06/17/2023 text/html HPI Notes: 58 y/ o female, hx bilateral kidney stones. s/p left eswl. DOING WELL. KUB LEFT LOOKS GOOD. ALSO SHE HAS AN 8 MM RT RENAL STONE AND REQUESTS TREATMENT. ESWL ON 05/16/23 KUB TODAY LOOKS GOOD. Reji Ferrera MD [address] [place] [address],[address], [place], [address], [facility] 06/17/2023 12:14:34 OBGyn Episode No OBEpisode recorded.
--- OUTSIDE RECORDS SUMMARY | 2023-08-19 13:52 | XMS_ITS | Clinical Summary ---
Author Name Unknown Organization [employer] [facility] Address [place], [place] [address] Care Team Providers Care Resource Paraprofessional Name Role Phone Staff, Other Clinical Primary [...] Date Ureterolithiasis 03/17/2023 Hyperlipidemia 03/17/2023 Anxiety 03/17/2023 Social History Tobacco Use Types Packs/Day Years [...] Comments Blood Pressure 120/62 05/16/2023 9:45 AM HOUSEKEEPING ASSISTANT Pulse 60 05/16/2023 9:45 AM HOUSEKEEPING ASSISTANT Temperature 36 ??C (96.8 ??F) 05/16/2023 8:06 AM HOUSEKEEPING ASSISTANT Respiratory Rate 12 05/16/2023 9:30 AM HOUSEKEEPING ASSISTANT Oxygen Saturation 100% 05/16/2023 9:45 AM HOUSEKEEPING ASSISTANT Inhaled Oxygen Concentration - - Weight 87.1 kg (192 lb) 05/16/2023 6:27 AM HOUSEKEEPING ASSISTANT Height 180.3 cm (5' 11) 05/16/2023 6:27 AM HOUSEKEEPING ASSISTANT Body Mass Index 26.78 05/16/2023 6:27 AM HOUSEKEEPING ASSISTANT Plan of Treatment Health Maintenance Due Date [...] this topic Medical Devices Implanted Type Area Production Control Expediter Device Identifier Shelf Expiration Date Model / Serial / Lot Stent Uret [id number] Contour - [id number] Implanted:Qty: 1 on 03/18/2023 by Reji Ferrera MD at [facility] Left: Ureter [facility] 11/01/2025 [id number] / / [id number] Advance Directives Latest Code Status on File Code Status Date Activated Date Inactivated Comments Full Code 05/16/2023 6:09 AM 05/16/2023 3:58 PM Question Answer Comments Code Status Discussion: Not Discussed Code Status History Code Status Date Activated Date Inactivated Comments Full Code 03/17/2023 8:07 PM 03/18/2023 8:11 PM Question Answer Comments Code Status Discussion: Reviewed Preferences Care Teams Resource Paraprofessional Relationship Specialty Start Date End Date Staff, Other Clinical . PCP - General 03/16/23
--- OUTSIDE RECORDS SUMMARY | 2023-08-19 13:52 | XMS_ITS | Continuity of Care Document ---
Author Name Unknown Address [address] [place] [address] Phone [phone] Organization [facility], [facility] Address [address] 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 COMPARISON: 2023. IMPRESSION: No visible urolithiasis. CT could provide more sensitive assessment. Previously described right-sided intrarenal stone is difficult to visualize. Nonobstructive bowel. This report was electronically interpreted by: Magdaleno Quintanilla MD on 06/17/2023 at 16:02 Reji Ferrera MD [address] [place] [address],[address], [place], [address], [facility] 06/17/2023 17:39:45 Problems Name Status Onset Date Resolution Date Notes Provider Name and Address Organization Details Recorded Time Ureteric stone Active 3 Mehnaz Smith PA-C [address] [place] [address],[address], [address], [facility] 03/16/2023 09:56:55 Kidney stone Active 3 Mehnaz Smith PA-C [address] [place] [address],[address], [address], [facility] 03/16/2023 09:57:00 Problem Notes None recorded. Procedures Surgical History Date Name Laterality Status Provider Name and Address Organization Details Recorded Time 3 Cystoscopy with foreign body/stent removal completed Reji Ferrera MD [address] [place] [address],[address], [address], [facility] 03/23/2023 14:17:04 2 Colonoscopy completed Reji Ferrera MD [address] [place] [address],[address], [place], [address], [facility] 06/17/2023 12:05:01 Imaging Results None recorded. Procedure Notes None recorded. Medical Equipment None Reported. Allergies Allergen ID Allergen Name Allergen Category Reaction Reaction Severity Criticality Documentation Date Start Date Code Code System Note Provider Name and Address Organization Details Recorded Time 753147 Substance with sulfonami de structure and antibacte rial mechanism of action (substanc e) medicatio n hives Not available Not available 03/16/2023 16497 8003 SNOMED Evette Wildes [facility], [facility] 3 10:20:03 006541 Afrin medicatio n Not available Not available Not available 06/17/2023 72767 1 RxNorm Reji Ferrera MD [address] [facility],[address], [place], [address], [facility] 3 12:03:27 Medications Name Sig Start [...] Updated DateTime 06/17/2023 180.34 cm 27.1 kg/m2 30763.92 g Reji Ferrera MD [address] [place] [address], [phone] [place] [address] Urology 06/17/2023 12:03:13 Social History Question Answer Notes LastModified by Organizat ion Details LastModified Time Tobacco Smoking Status [facility] 03/16/2023 10:20:59 What Is Your Level Of Alcohol Consumption? Occasional [email or web address] Information not available 03/16/2023 What Is Your Level Of Caffeine Consumption? Occasional Information not available 06/17/2023 When Did You Quit Smoking? 16+yearsgloria menjivar [email or web address] Information not available 03/16/2023 What Was The [...] influenza, injectable, quadrivalent 04/07/2021 [facility]/16[facility]23 10:19:44 influenza, recombinant, quadrivalent,inject able, preservative free 04/06/2019 completed Evetteagusto Wildes null, [facility] 03/16/2023 10:19:44 zoster recombinant 03/26/2020 completed Evette Bro oks null, [facility] 03/16/2023 10:19:44 zoster recombinant 06/16/2020 [facility] 03/16/2023 10:19:44 COVID-19, mRNA, LNP-S, PF, 30 mcg/0.3 mL dose 07/22/2020 completed [facility] 03/16/2023 10:19:44 COVID-19, mRNA, LNP-S, PF, 30 mcg/0.3 mL dose 04/21/2021 completed [facility] 03/16/2023 10:19:44 COVID-19, mRNA, LNP-S, PF, 30 mcg/0.3 mL dose 07/01/2020 [facility] 03/16/2023 10:19:44 COVID-19, mRNA, LNP-S, PF, 30 mcg/0.3 mL dose, shawn-sucrose 11/11/2021 [facility] 10:19:44 COVID-19, mRNA, LNP-S, bivalent, PF, 30 mcg/0.3 mL dose 03/31/2022 [facility] 03/16/2023 10:19:44 influenza, unspecified formulation 04/27/2018 [facility] 03/16/2023 10:19:44 Tdap 10/08/2014 completed Evette Salamanca null, [facility] 03/16/2023 10:19:44 Influenza, seasonal, injectable, preservative free 04/06/2010 completed Evette Salamanca null, [facility] 03/16/2023 10:19:44 Influenza, seasonal, injectable, preservative free 04/06/2011 completed Evette Salamanca null, [facility] 03/16/2023 10:19:44 Influenza, seasonal, injectable, preservative free 04/06/2012 completed Evette Salamanca null, [facility] 03/16/2023 10:19:44 Influenza, seasonal, injectable, preservative free 04/10/2020 completed Evette Salamanca null, [facility] 03/16/2023 10:19:44 Influenza, seasonal, injectable, preservative free 04/26/2013 completed Evette Salamanca null, [facility] 03/16/2023 10:19:44 influenza, whole 04/23/2014 completed Evette [place] null, [facility] 03/16/2023 10:19:44 Novel [id number], preservative-free 04/25/2009 [facility] 03/16/2023 10:19:44 Td (adult), 2 Lf tetanus toxoid, preservative free, adsorbed 02/05/2005 [facility] 03/16/2023 10:19:44 Hep B, adolescent or pediatric 06/09/2007 completed Evette Salamanca null, [facility] 03/16/2023 10:19:44 influenza, injectable, quadrivalent, preservative free 03/31/2017 completed Evette Salamanca null, [facility] 03/16/2023 10:19:44 influenza, injectable, quadrivalent, preservative free 03/31/2022 completed Evette Salamanca null, [facility] 03/16/2023 10:19:44 influenza, injectable, quadrivalent, preservative free 04/08/2016 completed Evetteagusto Wildes null, [facility] 03/16/2023 10:19:44 influenza, injectable, quadrivalent, preservative free 04/10/2015 completed Evette meade [facility] 03/16/2023 10:19:45 influenza, injectable, quadrivalent, preservative free 04/25/2009 completed Evette meade [facility] 03/16/2023 10:19:45 Past Encounters Encounter ID Performer Location Encounter Start Date Encounter Closed Date Diagnosis/Indication [id number] Reji Ferrera MD [facility] [address] [place] [address] 06/17/2023 11:53:23 06/17/2023 12:37:25 Kidney stone Health Concerns Section Related Observation LastModified by Organization Detai ls LastModified Time None Recorded Concern Status LastModified by Organization Details LastModified Time None Recorded Payers Encounter Date Sequence Insurance Name Policy Number Policy Patel Covered Member ID Patel Member ID Guarantor Name 06/17/2023 1 PREFERREDONE Maryann Tirado [id number] Maryann Candida Notes Date Note Type Note Provider Name and Address Organization Details Recorded Time 06/17/2023 text/html HPI Notes: 58 y/o female, hx bilateral kidney stones. s/p left eswl. DOING WELL. KUB LEFT LOOKS GOOD. ALSO SHE HAS AN 8 MM RT RENAL STONE AND REQUESTS TREATMENT. ESWL ON 05/16/23 KUB TODAY LOOKS GOOD. Reji Ferrera MD [address] [place] [address],[facility] [address], [place], [address], [facility] 06/17/2023 12:14:34 OBGyn Episode No OBEpisode recorded.
--- OUTSIDE RECORDS SUMMARY | 2023-08-19 13:52 | XMS_ITS | Data Portability ---
Author Name Unknown Address [address] [place] [address] Phone [phone] Organization [place] [facility] Address [address] [place] [address] Care Team Providers Care Bag Bundler Name Role Phone VALENTÍN HINKLE Primary Care [...] None recorded. Referral physical therapist referral [address] [place], [facility] [address], [address], [address], 7 14:15:27 Procedures None recorded. Surgeries None recorded. Imaging XR, orthopanto gram 2016 017 [email or web address] [place], [address] [employer] [place], [address], [address], 7 14:15:27 Medication Orders cyclobenza windy 10 mg tablet 2016 017 [facility][id number], [address] [place], [place], [id number], 7 14:30:14 cyclobenza windy 10 mg tablet 2016 017 [facility] [address][id number], [address] [place], [place], [id number], 15:47:00 Patient TargetsNo targets recorded. Patient Instructions Encounter Date Encounter Id Patient Instructions Last Modified By Organization Details Last Modified Time 05/11/2017 [id number] Self Care for TMD [email or web address] Not availab [...] Xr, Orthopantogram : Panoramic image of mandible [facility] D[facility] 06/03/2017 16:09:44 Problems Name Status Onset Date Resolution Date Notes Provider Name and Address Organization Details Recorded Time Arthralgia of temporomandibular joint Active [facility], [facility] 05/11/2017 15:45:56 Myofascial pain Active 017 [facility] D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 Procedures Surgical History Date Name Laterality Status Provider Name and Address Organization Details Recorded Time 06/08/20 17 Mandibular advancement [facility] 06/08/2017 14:30:55 Hysterectomy completed [place] [facility] 05/11/2017 15:31:37 [...] Name and Address Organization Details Recorded Time 62324 Substance with sulfonami de structure and antibacte rial mechanism of action (substanc e) medicatio n Not available Not available Not available 05/11/2017 78020 8003 SNOMED La meade [facility] 7 15:13:00 [...] Updated DateTime 7 180.34 cm 27.2 kg/m2 54576.5 1 g 70 /min 125 mm[Hg] 77 mm[Hg] La meade [facility] 7 15:13:39 Date Recorded Body height Body mass index (BMI) Body weight Systolic blood pressure Diastolic blood pressure Provider Name and Address Organization Details Last Updated DateTime 06/08/2017 180.34 cm 27.2 kg/m2 91166.51 g 104 mm[Hg] 70 mm[Hg] Lucy meade [facility] 7 14:09:06 Date Recorded Body height Body mass index (BMI) Body weight Heart rate Systolic blood pressure Diastolic blood pressure Provider Name and Address Organization Details Last Updated DateTime 7 180.34 cm 27.2 kg/m2 27913.5 1 g 80 /min 128 mm[Hg] 75 mm[Hg] Kalyani meade [facility] 7 14:04:17 Date Recorded Body height Body mass index (BMI) Body weight Heart rate Systolic blood pressure Diastolic blood pressure Provider Name and Address Organization Details Last Updated DateTime 8 180.34 cm 27.2 kg/m2 61642.5 1 g 68 /min 126 mm[Hg] 70 mm[Hg] Yogesh meade [facility] 8 14:04:14 Social History Question Answer Notes LastModified by Organizat ion Details LastModified Time Tobacco Smoking Status Never Smoker La meade [facility] 05/11/2017 15:30:35 [...] not available 05/11/2017 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 available 05/11/2017 Live Alone Or [...] N Premenstrual syndrome (PMS) N MRSA N Emphysema N Head Trauma/Injury N Irritable bowel syndrome N Depression N COPD N Glaucoma N Lung Disease N Hypothyroidism N Pneumonia N Pacemaker N Obstructive Sleep Apnea Y Anxiety Disorder Y Muscle, Joint, or Bone Problems N Autoimmune disease N Vision or Eye Problems N Arthritis N Serious Illness or Injuries N Acid Reflux (GERD) N Cancer N Stroke N Neck Injury N Eating disorder N Back Injury N High Cholesterol N Neurologic Disorder N History of chemotherapy N Liver Disease N Organ Transplant N Rheumatoid Arthritis N Fibromyalgia N Headaches N Kidney Disease N Allergies/Hayfever Y Post traumatic stress disorder (PTSD) N Parkinson's Disease N Migraines N Brain Tumors N Anemia N Multiple Sclerosis N Immune System Disorder N Meningitis N Pancreatic disease N Heart Attack ([place]) N Stomach Ulcers N Diabetes N Back pain N Bleeding Disorder N Seizures/Epilepsy N Sjogren's syndrome N Tuberculosis N AIDS/HIV N Hyperlipidemia N History of radiation therapy N Dementia N Asthma N Physical or sexual abuse N Substance Abuse N Psoriasis N Peripheral Vascular Disease N Reflux/GERD N Mental Problems N Vertigo N Sleep Disorder N Hepatitis N Aneurysm N Neuropathy N Heart Disease N Pulmonary Embolism N Hypertension N Osteoporosis Y Gynecological HistoryNo gynecological history recorded. Obstetrics History GPAL:G 0 P 0 0 0 0 Immunizations Vaccine Type Date Status Provider Name and Address Organization Details Recorded Time influenza, injectable, quadrivalent 04/03/2017 completed [place] [facility] 05/11/2017 15:30:25 Past Encounters Encounter ID Performer Location Encounter Start Date Encounter Closed Date Diagnosis/Indication [id number] [place] [address] [place] [address] 05/11/2017 14:56:02 05/11/2017 17:07:41 Arthralgia of temporomandibular joint Articular disc disorder of temporomandibular joint Myofascial pain Obstructive sleep apnea of adult [id number] [place] [address] [place] [address] 06/08/2017 13:55:06 06/08/2017 14:31:46 Myofascial pain Osteoarthritis Obstructive sleep apnea of adult [id number] [facility] [address] [place] [address] 06/22/2017 13:55:49 06/22/2017 15:11:41 Obstructive sleep apnea of adult Myofascial pain Snoring Osteoarthritis Arthralgia of temporomandibular joint Articular disc disorder of temporomandibular joint [id number] [facility] [address] [place] [address] 10/31/2017 13:57:17 10/31/2017 14:20:05 Myofascial pain Obstructive sleep apnea of adult Snoring Osteoarthritis Health Concerns Section Related Observation LastModified by Organization Detai ls LastModified Time None Recorded Concern Status LastModified by Organization Details LastModified Time None Recorded Advance Directives Directive None Recorded Payers Encounter Date Sequence Insurance Name Policy Number Policy Patel Covered Member ID Patel Member ID Guarantor Name 10/31/2017 1 PREFERREDONE [id number] Worthy Candida [id number] Maryann Candida 06/22/2017 1 PREFERREDONE [id number] Worthy Candida [id number] Maryann Candida 06/08/2017 1 PREFERREDONE [id number] Maryann Worthy Candida [id number] Maryann Candida 05/11/2017 1 PREFERREDONE [id number] Worthy Candida [id number] Maryann Candida Notes Date Note Type Note [...] in the jaw; no popping/clicking; grinding teeth; [place]: 15 Prior Tests: thyroid panel; allergy testing; home sleep study; PSG Prior opinion other ENT Notes: April 09, 2017 patient had a home sleep study and these were the findings: AHI = 4 and RDI = 18 CAMERON Mariano DDS [facility] 05/20/2017 14:15:31 06/08/2017 text/html HPI Notes: Maryann presents today for delivery of a MAD. She states that there has not been any change in her symptoms since last visit. CAMERON Mariano DDS [facility] 06/08/2017 14:31:27 06/22/2017 text/html HPI Notes: Shanna greer presents today for follow-up. She is effectively using the mandibular advancement oral appliance. Subjectively they believe the appliance to be very effective in improving sleep quality. She recognizes improved daytime tiredness and improvement in restorative sleep. She denies side effects including jaw pain. She is not using the morning bite reports analyst as recommended. Adjustments to the oral appliance are believed to be necessary. CAMERON Mariano DDS [facility] 07/05/2017 16:56:35 [...] (S)he is not using the morning bite reports analyst as recommended. Adjustments to the oral appliance are believed to be necessary. CAMERON Mariano DDS [facility] 10/31/2017 14:17:13 OBGyn Episode No OBEpisode recorded.
--- NOTE | 2023-08-19 14:00 | MM_ITS ---
Final Report Patient: COLEMAN GERBER Facility:?[facility] Patient ID:?[id number] Site Patient ID:?[id number]. Site :?[id number] Study:?XRay Chest 2v-08/19/2023 9:32:01 AM Ordering Physician:Valeri Sanchez Final Report: INDICATION: Palpitations TECHNIQUE: Chest 2 views COMPARISON: 04/07/2015 FINDINGS: Cardiovascular and mediastinum: Heart size and vasculature are normal in caliber and appearance. Lungs and pleural spaces: Lungs are clear. No sign of infiltrate or mass. No sign of pleural effusion. No pneumothorax. Bones and soft tissues: No significant findings. IMPRESSION: No acute findings. Dictated by Joseph Sanches MD @ 08/19/2023 10:33:26 AM (Electronic Signature)
== END 2023-08-19 13:50 | disposition home or self-care (01) ==
PROVIDERS: PCP Physician Assistant Medical; Visit Provider Physician Assistant Medical
DX: Z12.31 Encounter for screening mammogram for malignant neoplasm of breast (principal)
CPT/HCPCS: 77063; 77067

== ENCOUNTER 2023-10-11 12:43 | Outpatient (CLI) | payer OTHER, SELFPAY ==
--- OUTSIDE RECORDS SUMMARY | 2023-10-11 12:47 | XMS_ITS | Data Portability ---
Author Name Unknown Address [address] [place] [address] Phone [phone] Organization [place] [facility] [place] [facility] Address [address] [place] [address] Care Team Providers Care Impact Retail Service Merchandiser Name Role Phone VALENTÍN HINKLE Primary Care [...] None recorded. Referral physical therapist referral 2016 [place], [facility] E Lanark Mahin, [address], [address], 7 14:15:27 Procedures None recorded. Surgeries None recorded. Imaging XR, orthopanto gram 2016 017 [email or web address] [place], 5 E [facility], [address], [address], 7 14:15:27 Medication Orders cyclobenza windy 10 mg tablet 2016 017 [employer] #[id number], [address] [place], [place], [id number], 7 14:30:14 cyclobenza windy 10 mg tablet 2016 017 [employer] #[id number], [address] [place], [place], [id number], 15:47:00 Patient TargetsNo targets recorded. Patient Instructions Encounter Date Encounter Id Patient Instructions Last Modified By Organization Details Last Modified Time 05/11/2017 [id number] Self Care for TMD [email or web address] Not availab le 05/24/2017 15:57:48 oral appliance preparation* Not available 05/20/2017 14:15:27 Reason for Referral Referring Physician: Lakeisha Corona, Pain Management, [phone] Encounter Date: 05/11/2017 Results Created Date Observation Date Name Description Value Unit Range Abnormal Flag LastModifiedBy Organization Detail LastModifiedTime 05/11/20 17 XR, ortho panto gram No observ ation record ed. Not Available 06/03/2017 16:09:43 Result Notes Documentation Provider Name and Address Organization Details Recorded Time Xr, Orthopantogram : Panoramic image of mandible [facility] D[facility] 06/03/2017 16:09:44 Problems Name Status Onset Date Resolution Date Notes Provider Name and Address Organization Details Recorded Time Arthralgia of temporomandibular joint Active [facility], [facility] 05/11/2017 15:45:56 Myofascial pain Active 017 [facility] 05/11/2017 15:45:58 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 Procedures Surgical History Date Name Laterality Status Provider Name and Address Organization Details Recorded Time 06/08/20 17 [facility]ibular [facility] 06/08/2017 14:30:55 Hysterectomy [facility] [place] [facility] 05/11/2017 [...] Name and Address Organization Details Recorded Time 68357 Substance with sulfonami de structure and antibacte rial mechanism of action (substanc e) medicatio n Not available Not available Not available 05/11/2017 75718 8003 SNOMED [place] meade [facility] 7 15:13:00 [...] Updated DateTime 7 180.34 cm 27.2 kg/m2 26826.5 1 g 70 /min 125 mm[Hg] 77 mm[Hg] La meade [facility] 7 15:13:39 Date Recorded Body height Body mass index (BMI) Body weight Systolic blood pressure Diastolic blood pressure Provider Name and Address Organization Details Last Updated DateTime 06/08/2017 180.34 cm 27.2 kg/m2 36448.51 g 104 mm[Hg] 70 mm[Hg] Lucy meade [facility] 7 14:09:06 Date Recorded Body height Body mass index (BMI) Body weight Heart rate Systolic blood pressure Diastolic blood pressure Provider Name and Address Organization Details Last Updated DateTime 7 180.34 cm 27.2 kg/m2 80449.5 1 g 80 /min 128 mm[Hg] 75 mm[Hg] Kalyani meade [facility] 7 14:04:17 Date Recorded Body height Body mass index (BMI) Body weight Heart rate Systolic blood pressure Diastolic blood pressure Provider Name and Address Organization Details Last Updated DateTime 8 180.34 cm 27.2 kg/m2 86428.5 1 g 68 /min 126 mm[Hg] 70 mm[Hg] Yogesh meade [facility] 8 14:04:14 Social History Question Answer Notes LastModified by Organizat ion Details LastModified Time Tobacco Smoking Status Never Smoker La meade [facility] 05/11/2017 15:30:35 [...] not available 05/11/2017 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 Information not available 05/11/2017 Live Alone Or [...] History Condition Response Coronary Artery Disease N Gout N Other N Chronic fatigue syndrome N Hyperthyroidism N MRSA N Premenstrual syndrome (PMS) N Head Trauma/Injury N Emphysema N Irritable bowel syndrome N Hypothyroidism N Depression N COPD N Lung Disease N Glaucoma N Pneumonia N Pacemaker N Obstructive Sleep [...] Meningitis N Pancreatic disease N Heart Attack (OR) N Stomach Ulcers N Back pain N [...] Recorded Time influenza, injectable, quadrivalent 04/03/2017 completed [facility]ERON [facility] 05/11/2017 15:30:25 Past Encounters Encounter ID Performer Location Encounter Start Date Encounter Closed Date Diagnosis/Indication Diagnosis SNOMED-CT Code [id number] Mariella Kishan DDS [place] [address] [place] [address] 05/11/2017 14:56:02 05/11/2017 17:07:41 Arthralgia of temporomandibular joint 51459957 Articular disc disorder of temporomandibular joint 73794064 Myofascial pain 33911524 9 Obstructiv e sleep apnea of adult 7686398133861 [id number] Mariella Kishan DDS [place] [address] [place] [address] 06/08/2017 13:55:06 06/08/2017 14:31:46 Myofascial pain 927176075 Osteoarthritis 263440182 Obstructiv e sleep apnea of adult 7464844859916 [id number] Mariella Kishan DDS [place] [address] [place] [address] 06/22/2017 13:55:49 06/22/2017 15:11:41 Obstructive sleep apnea of adult 2162618630312 Myofascial pain 55045153 9 Snoring 94184308 Osteoarthritis 879566820 Arthralgia of temporomandibular joint 60205962 Articular disc disorder of temporomandibular joint 27099025 [id number] Mariella Kishan DDS [place] [address] [place] [address] 10/31/2017 13:57:17 10/31/2017 14:20:05 Myofascial pain 149619179 Obstructiv e sleep apnea of adult 4044300351395 Snoring 42271633 Osteoarthritis 710134849 Health Concerns Section Related Observation LastModified by Organization Detai ls LastModified Time None Recorded Concern Status LastModified by Organization Details LastModified Time None Recorded Advance Directives Directive None Recorded Payers Encounter Date Sequence Insurance Name Policy Number Policy Patel Covered Member ID Patel Member ID Guarantor Name 10/31/2017 1 PREFERREDONE [id number] Maryann A Candida [id number] Maryann Candida 06/22/2017 1 PREFERREDONE [id number] Maryann A Candida [id number] Maryann Candida 06/08/2017 1 PREFERREDONE [id number] Maryann A Candida [id number] Maryann Candida 05/11/2017 1 PREFERREDONE [id number] Maryann A Candida [id number] Maryann Candida Notes Date Note Type Note [...] in the jaw; no popping/clicking; grinding teeth; [place]: 15 Prior Tests: thyroid panel; allergy testing; home sleep study; PSG Prior opinion other ENT Notes: April 09, 2017 patient had a home sleep study and these were the findings: AHI = 4 and RDI = 18 Mariella meade [facility] 05/20/2017 14:15:31 06/08/2017 text/html HPI Notes: Maryann presents today for delivery of a MAD. She states that there has not been any change in her symptoms since last visit. Mariella meade [facility] 06/08/2017 14:31:27 06/22/2017 text/html HPI Notes: Shanna greer presents today for follow-up. She is effectively using the mandibular advancement oral appliance. Subjectively they believe the appliance to be very effective in improving sleep quality. She recognizes improved daytime tiredness and improvement in restorative sleep. She denies side effects including jaw pain. She is not using the morning bite dementia program director as recommended. Adjustments to the oral appliance are believed to be necessary. Mariella meade [facility] [...] (S)he is not using the morning bite dementia program director as recommended. Adjustments to the oral appliance are believed to be necessary. Mariella meade [facility] 10/31/2017 14:17:13 OBGyn Episode No OBEpisode recorded.
--- OUTSIDE RECORDS SUMMARY | 2023-10-11 12:47 | XMS_ITS | Data Portability ---
Author Name Unknown Address [address] [place] [address] Phone [phone] Organization [facility] Address [address] [place] [address] Care Team Providers Care Pavilion Cutter Name Role Phone STERLING PEREZ Primary Care [...] with surgery prior to her trip to [facility] in 3 weeks. ?? 1. Left [...] N/V, other concerns - schedule with 1st [facility] MD for cysto, left URS/HLL/possible ureteral stent 2. Right lower pole stone - surveillance for now - KUB in 1 year [email or web address] Not available 03/16/2023 17:46:39 03/23/2023 03/23/2023 57 Y/O MALE, S/P LEFT URS, HLL, LEFT STENT. HERE FOR STENT REMOVAL. HAD C.T. DONE IN [place] WHICH SHOWED NON OBSTRUCTIVE RT LOWER POLE [...] recorded. Lab urinalysis , dipstick 2022 023 [email or web address] [facility], [address], [place], [address], 10:21:48 Referral None recorded. Procedures None recorded. Surgeries None recorded. Imaging None recorded. Medication Orders None recorded. Patient TargetsNo targets recorded. Patient InstructionsNo instructions recorded. Reason for Referral None Reported. Results Created Date Observation Date Name Description Value Unit Range Abnormal Flag LastModifiedBy Organization Detail LastModifiedTime 03/16/2003/16/2023 urina lysis , dipst ick Color-Status Yellow Not Available [facility] [address], [place], [address], 03/16/2023 10:21:20 03/16/2003/16/2023 urina lysis , dipst ick Clarity-Stat us Clear Not Available [facility] [address], [place], [address], 03/16/2023 10:21:20 03/16/20 23 03/16/2023 urina lysis , dipst ick pH-Status 5.0 Not Available [facility] [address], [place], [address], 03/16/2023 10:21:20 03/16/20 23 03/16/2023 urina lysis , dipst ick Nitrates-Sta tus negati ve Not Available [facility] [address], [place], [address], 03/16/2023 10:21:20 03/16/20 23 03/16/2023 urina lysis , dipst ick Blood-Status Modera te Not Available [facility] [address], [place], [address], 03/16/2023 10:21:20 03/16/20 23 03/16/2023 urina lysis , dipst ick Leuko-Status Trace Not Available [facility] [address], [place], [address], 03/16/2023 10:21:20 05/04/20 23 2023 XR, kidne y + urete r + bladd er EXAM: XR, KIDNEY + URETER + BLADDE R LOCATI ON: [facility] DATE: 023 INDICA TION: Calcul us of [...] Alfonzo Bowen MD on 2022 at 14:39 [place] [facility] [place] [address], [place], [address], 05/05/2023 22:12:50 06/17/20 23 06/17/2023 XR, kidne y + urete r + bladd er EXAM: XR, KIDNEY + URETER + BLADDE R LOCATI ON: [facility] DATE: 2022 INDICA TION: [...] Magdaleno Quintanilla MD on 2022 at 16:[address] [facility] [place] [address] [address], [place], [address], 06/17/2023 17:39:45 Result Notes Documentation Provider Name and Address Organization Details Recorded Time Xr, Kidney + Ureter + Bladder : EXAM: XR, KIDNEY + URETER + BLADDER [facility]: 2023 INDICATION: Calculus of kidney COMPARISON: None. IMPRESSION: 6 mm stone noted in the mid to inferior pole of the right kidney. No definite left renal stones are identified. Nonobstructive bowel gas pattern. Mild stool noted throughout the colon. This report was electronically interpreted by: Alfonzo Bowen MD on 2023 at 14:39 Reji Ferrera MD [address] [place] [address],[address], [place], [address], [facility] 05/05/2023 22:12:50 Xr, Kidney + Ureter + Bladder : EXAM: XR, KIDNEY + URETER + BLADDER LOCATION: [facility] DATE: 06/17/2023 INDICATION: Calculus of kidney. COMPARISON: 2023. IMPRESSION: No visible urolithiasis. CT could provide more sensitive assessment. Previously described right-sided intrarenal stone is difficult to visualize. Nonobstructive bowel. This report was electronically interpreted by: Magdaleno Quintanilla MD on 06/17/2023 at 16:02 Reji Ferrera MD [address] [place] [address],[address], [place], [address], [facility] 06/17/2023 17:39:45 Problems Name Status Onset Date Resolution Date Notes Provider Name and Address Organization Details Recorded Time Ureteric stone Active 3 Mehnaz Smith PA-C [address] [place] [address],[address], [place], [address], [facility] 03/16/2023 09:56:55 Kidney stone Active 3 Mehnaz Smith PA-C [address] [place] [address],[address], [place], [address], [facility] 03/16/2023 09:57:00 Problem Notes None recorded. Procedures Surgical History Date Name Laterality Status Provider Name and Address Organization Details Recorded Time 3 Cystoscopy with foreign body/stent removal completed Reji Ferrera MD [address] [place] [address],[address], [place], [address], [facility] 03/23/2023 14:17:04 2 Colonoscopy completed Reji Ferrera MD [address] [place] [address],[address], [place], [address], [facility] 06/17/2023 12:05:01 Imaging Results Imaging Date Name Status LastModified by Organiz ation Details LastModified Time 2023 XR, kidney + ureter + bladder completed [id number] [facility] [place] [address], [place], [address], 05/05/2023 22:12:50 06/17/2023 XR, kidney + ureter + bladder completed [address] [facility] [place] [address], [place], [address], 06/17/2023 17:39:45 Procedure Notes None recorded. Medical Equipment None Reported. Allergies Allergen ID Allergen Name Allergen Category Reaction Reaction Severity Criticality Documentation Date Start Date Code Code System Note Provider Name and Address Organization Details Recorded Time 515442 Substance with sulfonami de structure and antibacte rial mechanism of action (substanc e) medicatio n hives Not available Not available 03/16/2023 66165 8003 SNOMED Evetteagusto Salamanca [facility] 3 10:20:03 956449 Afrin medicatio n Not available Not available Not available 06/17/2023 91292 1 RxNorm Reji Ferrera MD [address] [facility],[address], [address], [facility] 3 12:03:27 Medications Name Sig Start [...] Updated DateTime 03/16/2023 180.34 cm 27.2 kg/m2 76246.51 g Evette meade [facility] 03/16/2023 10:19:29 Date Recorded Body height Body mass index (BMI) Body weight Provider Name and Address Organization Details Last Updated DateTime 03/23/2023 180.34 cm 27.2 kg/m2 84225.51 g Reji Ferrera MD [address] [place] [address], [address] [place] [address] 03/23/2023 14:02:15 Date Recorded Body height Body mass index (BMI) Body weight Provider Name and Address Organization Details Last Updated DateTime 2023 180.34 cm 27.1 kg/m2 22333.92 tacos Ferrera MD [address] [place] [address] 2023 15:48:57 Date Recorded Body height Body mass index (BMI) Body weight Provider Name and Address Organization Details Last Updated DateTime 06/17/2023 180.34 cm 27.1 kg/m2 72889.92 tacos Ferrera MD [address] [place] [address],[address] 06/17/2023 12:03:13 Social History Question Answer Notes LastModified by Organizat ion Details LastModified Time Tobacco Smoking Status Former Smoker Evette meade [facility] 03/16/2023 10:20:59 What Is Your Level Of Alcohol Consumption? Occasional [email or web address] Information not available 03/16/2023 What Is Your Level Of Caffeine Consumption? Occasional Information not available 06/17/2023 When Did You Quit Smoking? 16+yearsgloria [email or web address] [id number] Information not available 03/16/2023 What Was The [...] influenza, injectable, quadrivalent 04/07/2021 completed Evette meade [facility] 03/16/2023 10:19:44 influenza, recombinant, quadrivalent,inject able, preservative free 04/06/[address] [facility] 03/16/2023 10:19:44 zoster recombinant 03/26/[address] [facility] 03/16/2023 10:19:44 zoster recombinant 06/16/[address] [facility] 03/16/2023 10:19:44 COVID-19, mRNA, LNP-S, PF, 30 mcg/0.3 mL dose 07/22/2020 completed [facility]ette [facility]ade [facility] 03/16/2023 10:19:44 COVID-19, mRNA, LNP-S, PF, 30 mcg/0.3 mL dose 04/21/2021 erma meade [facility] 03/16/2023 10:19:44 COVID-19, mRNA, LNP-S, PF, 30 mcg/0.3 mL dose 07/01/2020 completed Evette [place] null, [facility] 03/16/2023 10:19:44 COVID-19, mRNA, LNP-S, PF, 30 mcg/0.3 mL dose, shawn-sucrose 11/11/2021 completed Evette Salamanca null, [facility] 03/16/2023 10:19:44 COVID-19, mRNA, LNP-S, bivalent, PF, 30 mcg/0.3 mL dose 03/31/2022 completed Evette [place]am[place] null, [facility] 03/16/2023 10:19:44 influenza, unspecified formulation 04/27/2018 completed Evette [place]am[place] null, [facility] 03/16/2023 10:19:44 Tdap 10/08/2014 [facility] 10:19:44 Influenza, seasonal, injectable, preservative free 04/06/2010 completed Evette Salamanca null, [facility] 03/16/2023 10:19:44 Influenza, seasonal, injectable, preservative free 04/06/2011 completed Evette Salamanca null, [facility] 03/16/2023 10:19:44 Influenza, seasonal, injectable, preservative free 04/06/2012 completed Eevtte Salamanca null, [facility] 03/16/2023 10:19:44 Influenza, seasonal, injectable, preservative free 04/10/2020 completed Evette Salamanca null, [facility] 03/16/2023 10:19:44 Influenza, seasonal, injectable, preservative free 04/26/2013 completed Evette Salamanca null, [facility] 03/16/2023 10:19:44 influenza, whole 04/23/2014 completed Evette Oxford s null, [facility] 03/16/2023 10:19:44 Novel [id number], preservative-free 04/25/2009 [facility] 03/16/2023 10:19:44 Td (adult), 2 Lf tetanus toxoid, preservative free, adsorbed 02/05/2005 completed Evette meade [facility] 03/16/2023 10:19:44 Hep B, adolescent or pediatric 06/09/2007 completed Evette meade [facility] 03/16/2023 10:19:44 influenza, injectable, quadrivalent, preservative free 03/31/2017 completed Evette meade [facility] 03/16/2023 10:19:44 influenza, injectable, quadrivalent, preservative free 03/31/[address] [facility] 03/16/2023 10:19:44 influenza, injectable, quadrivalent, preservative free 04/08/2016 completed Evette meade [facility] 03/16/2023 10:19:44 influenza, injectable, quadrivalent, preservative free 04/10/2015 completed Evette meade [facility] 03/16/2023 10:19:45 influenza, injectable, quadrivalent, preservative free 04/25/2009 completed Evette meade [facility] 03/16/2023 10:19:45 Past Encounters Encounter ID Performer Location Encounter Start Date Encounter Closed Date Diagnosis/Indication Diagnosis SNOMED-CT Code [id number] JAYASHREE [facility] [address] [place] [address] 03/16/2023 09:41:24 03/18/2023 16:06:46 Ureteric stone 88359408 Kidney stone 59817575 [id number] MD NARAYAN [facility] [address] [place] [address] 03/23/2023 13:47:32 04/02/2023 15:24:36 Ureteric stone 04843853 History of calculus of kidney 948129441 [id number] MD NARAYAN [facility] [address] [place] [address] 2023 15:23:51 05/16/2023 18:53:24 History of calculus of kidney 735537597 [id number] Reji Ferrera MD [facility] [address] [place] [address] 06/17/2023 11:53:23 06/17/2023 12:37:25 Kidney stone 06725377 Health Concerns Section Related Observation LastModified by Organization Detai ls LastModified Time None Recorded Concern Status LastModified by Organization Details LastModified Time None Recorded Advance Directives Directive None Recorded Payers Encounter Date Sequence Insurance Name Policy Number Policy Patel Covered Member ID Patel Member ID Guarantor Name 06/17/2023 1 PREFERREDONE Maryann A Candida [id number] Maryann Candida 2023 1 PREFERREDONE Maryann A Candida [id number] Maryann Candida 03/23/2023 1 PREFERREDONE Maryann A Candida [id number] Maryann Candida 03/16/2023 1 PREFERREDONE Maryann A Candida [id number] Maryann Candida Notes Date Note Type Note Provider Name and Address Organization Details Recorded Time 03/16/2023 text/html HPI Notes: 57F with left ureteral stone and kidney stone. Seen at [place] ED on 03/14 for acute onset left [...] UTI x1 in remote past. Leaves for [employer] in 3 weeks so hoping to have stone addressed prior. UA with moderate blood, trace leuks, o/w negative Labs: (reviewed) 03/14/23 UA 50-100 RBC, 0-2 WBC, neg nitrite, neg leuk est 03/14/23 Cr 1.0 Imaging: (reviewed) 03/14/23 CT A/P: 5 mm prox left ureteral stone with hydro; additional RLP stone PMH: migraines, SCC PSH: Mehnaz Smith PA-C [address] [place] [address],[address], [place], [address], [facility] 03/16/2023 17:46:42 03/23/2023 text/html HPI Notes: 57F with left ureteral stone and kidney stone. Seen at [place] ED on 03/14 for acute onset left [...] UTI x1 in remote past. Leaves for [employer] in 3 weeks so hoping to have [...] HERE FOR STENT REMOVAL. Reji Ferrera MD [address] [place] [address],[address], [place], [address], [facility] 03/25/2023 15:25:48 2023 text/html HPI Notes: 57 y/ o female, hx bilateral kidney stones. s/p left eswl. DOING WELL. KUB LEFT LOOKS GOOD. ALSO SHE HAS AN 8 MM RT RENAL STONE AND REQUESTS TREATMENT. Reji Ferrera MD [address] [place] [address],[address], [place], [address], [facility] 05/06/2023 08:56:26 06/17/2023 text/html HPI Notes: 58 y/ o female, hx bilateral kidney stones. s/p left eswl. DOING WELL. KUB LEFT LOOKS GOOD. ALSO SHE HAS AN 8 MM RT RENAL STONE AND REQUESTS TREATMENT. ESWL ON 05/16/23 KUB TODAY LOOKS GOOD. Reji Ferrera MD [address] [facility],[place] [address], [place], [address], [place] [facility] 06/17/2023 12:14:34 OBGyn Episode No OBEpisode recorded.
--- OUTSIDE RECORDS SUMMARY | 2023-10-11 12:47 | XMS_ITS | Clinical Summary ---
Author Name Unknown Organization [facility] Address [place], [place] [address] Care Team Providers Care Water Project Engineer Name Role Phone Staff, Other Clinical Primary Care Provider Unav ailable Allergies Active Allergy Reactions Criticality Noted Date Comments Oxymetazoline Other - Describe In Comment Field 03/17/2023 Swelling of turbinates Sulfa (Sulfonamide Antibiotics) Hives 03/17/2023 Medications Medication Sig Dispensed Refills Start Date End Date Status citalopram (CELEXA) 20 mg tablet Take 20 mg by mouth at bedtime. Active ondansetron (ZOFRAN ODT) [address] 4 mg on the tongue every 8 hours if needed for Nausea/Vomiting. Active rosuvastatin (CRESTOR) 5 mg tablet Take 5 mg by mouth at bedtime. Active acetaminophen (TYLENOL EXTRA STRGTH) 500 mg tablet Take 1,000 mg by mouth every 6 hours if needed for Pain. Max acetaminophen dose: 4000mg in 24 hrs. Active magnesium oxide (MAG-OX 400) 400 mg tablet Take 400 mg by mouth once daily. Active cholecalciferol (Vitamin D) 1,000 unit tablet Take 1,000 units by mouth once daily. Active multivitamin (MVI) tablet Take 1 Capsule by mouth once daily. Active ergocalciferol (VITAMIN D2) 10 mcg (400 unit) tablet Take 400 units by mouth once daily. Active valACYclovir (VALTREX) 1 gram tablet Take 1 g by mouth 2 times daily if needed. 03/28/2023 Active Active Problems Problem Noted Date [...] Comments Blood Pressure 120/62 05/16/2023 9:45 AM WOOD MODEL BUILDER Pulse 60 05/16/2023 9:45 AM WOOD MODEL BUILDER Temperature 36 ??C (96.8 ??F) 05/16/2023 8:06 AM WOOD MODEL BUILDER Respiratory Rate 12 05/16/2023 9:30 AM WOOD MODEL BUILDER Oxygen Saturation 100% 05/16/2023 9:45 AM WOOD MODEL BUILDER Inhaled Oxygen Concentration - - Weight 87.1 kg (192 lb) 05/16/2023 6:27 AM WOOD MODEL BUILDER Height 180.3 cm (5' 11) 05/16/2023 6:27 AM WOOD MODEL BUILDER Body Mass Index 26.78 05/16/2023 6:27 AM WOOD MODEL BUILDER Plan of Treatment Upcoming Encounters Date Type Department Care Team (Late st Contact Info) Description 10/11/2023 1:00 PM CDT Orders Only [facility] & [address] [address] Health Maintenance Due Date Last Done Comments [...] 03/31/2022, 11/11/2021, 04/21/2021 Influenza for age 50-64 03/04/2024 Pneumococcal series for age 6-64 Aged Out No longer eligible b ased on patient's age to complete this topic Medical Devices Implanted Type Area Networking Specialist Device Identifier Shelf Expiration Date Model / Serial / Lot Stent Uret [id number] Contour - [id number] Implanted:Qty: 1 on 03/18/2023 by Reji Ferrera MD at [facility] Left: [employer] [facility] 11/01/2025 [id number] / / [id number] Advance Directives * Full Code (Latest Code Status on File) Date Activated Date Inactivated Comments 05/16/2023 6:09 AM 05/16/2023 3:58 PM Question Answer Comments Code Status Discussion: Not Discussed * Full Code Date Activated Date Inactivated Comments 03/17/2023 8:07 PM 03/18/2023 8:11 PM Question Answer Comments Code Status Discussion: Reviewed Preferences Care Teams Water Project Engineer Relationship Specialty Start Date End Date Staff, Other Clinical . PCP - General 03/16/23
[2023-10-11 13:49] VITALS: BP 122/74; PULSE 107; RESP 18
--- NOTE | 2023-10-11 13:49 | P.STN_ITS ---
Stress Test Note Date Date of test: 10/11/23 Providers Primary care provider: Linda Cowan Stress test physician: Margarito Koo Stress Test Note Stress test ordered: Stress Echo Indication for test: Chest pain/palpitation Results discussion: Patient presents for the above test, after discussion the risks benefits side effects and review of the cardiac stress test medical history form. She would like to proceed. Pretest EKG shows normal sinus rhythm, no acute ST wave changes ventricular rate is 68, with an excellent blood pressure 121/72. Standard Zhao protocol is employed over a time course of 6 minutes 30 seconds, and she achieved a metabolic equivalent of 7.9 with a maximum heart rate of 175, this is 128% of the maximum, test is terminated because of fulfillment of protocol, and some mild fatigue and shortness of breath. No significant ST wave changes suggestive of ischemia, there is some indeterminate changes. Condit ioning was felt to be good. No dysrhythmias Impression: Negative electrographic portion of stress echo. Follow up suggested: Await echo portion of read by Cardiology, clinical correlation will be needed with this, patient left this testing facility in good condition.
== END 2023-10-11 12:44 | disposition home or self-care (01) ==
LOC: STRESS 12:44
PROVIDERS: PCP Physician Assistant Medical; Visit Provider Family Medicine
DX: R00.2 Palpitations (principal); R07.9 Chest pain, unspecified
CPT/HCPCS: 93016; 93325; 93351

== ENCOUNTER 2024-07-13 08:14 | Outpatient (CLI) | payer OTHER, SELFPAY | END 2024-07-13 08:15 | disposition home or self-care (01) | LOC: NFLDREF 07-22 15:55 | PROVIDERS: PCP Physician Assistant Medical; Referring Provider Physician Assistant Medical; Visit Provider Physician Assistant Medical | DX: E78.5 Hyperlipidemia, unspecified (principal); Z13.29 Encounter for screening for other suspected endocrine disorder | CPT/HCPCS: 80053; 80061; 84443 ==

== ENCOUNTER 2024-08-31 09:42 | Outpatient (CLI) | payer OTHER, SELFPAY | END 2024-08-31 09:43 | disposition home or self-care (01) | LOC: MAMMO 09:42 | PROVIDERS: PCP Physician Assistant Medical; Visit Provider Physician Assistant Medical | DX: Z12.31 Encounter for screening mammogram for malignant neoplasm of breast (principal) | CPT/HCPCS: 77063; 77067 ==

== ENCOUNTER 2024-11-08 13:45 | Outpatient (RCR) | payer OTHER, SELFPAY | END 2025-03-08 23:59 | disposition home or self-care (01) | PROVIDERS: PCP Physician Assistant Medical; Visit Provider Physician Assistant Medical | DX: M54.50 Low back pain, unspecified (principal); Z51.89 Encounter for other specified aftercare | CPT/HCPCS: 97032; 97110; 97140; 97161 ==

== ENCOUNTER 2025-06-25 08:57 | Outpatient (CLI) | payer OTHER, SELFPAY | END 2025-06-25 08:58 | disposition home or self-care (01) | LOC: NFLDREF 06-26 06:28 | PROVIDERS: PCP Physician Assistant Medical; Referring Provider Physician Assistant Medical; Visit Provider Physician Assistant Medical | DX: Z00.00 Encounter for general adult medical examination without abnormal findings (principal); N95.1 Menopausal and female climacteric states; E66.9 Obesity, unspecified; Z68.28 Body mass index [BMI] 28.0-28.9, adult; L65.9 Nonscarring hair loss, unspecified; R41.89 Other symptoms and signs involving cognitive functions and awareness | CPT/HCPCS: 80053; 80061; 82306; 82607; 82670; 82728; 84144; 84207; 84403; 84443 ==